=== PATIENT | female | born 1950 | race Caucasian/White ===

== ENCOUNTER 2017-01-10 11:47 | Emergency (ER) | payer MEDICARE, BC ==
[2017-01-10] MEDS ORDERED: Sodium Chloride 0.9% 10 ML Syringe FLUSH PRN (11:52)
[2017-01-10] MEDS ORDERED: Morphine 10 MG/ML Syringe IVPUSH ONE (12:10)
[2017-01-10] MEDS ORDERED: diphenhydrAMINE 50 MG/ML SDV IVPUSH ONE (12:11)
[2017-01-10] MEDS ORDERED: Ondansetron 4 MG/2 ML SDV IVPUSH ONE (12:12)
[2017-01-10 12:26] LABS: CHLORIDE,CL 106 mmol/L (98-107); SODIUM,NA 143 mmol/L (136-145)
[2017-01-10] MEDS ORDERED: LORazepam 2 MG/ML MDV IVPUSH ONE (12:29)
--- NOTE | 2017-01-10 12:38 | EDM.PDOC ---
ED HPI HEADACHE COMPLAINT - General Chief Complaint: Headache Stated Complaint: headache Time Seen by Provider: 01/10/17 11:50 Source of Information: Reports: Patient History Limitations: Reports: No limitations - History of Present Illness INITIAL COMMENTS - FREE TEXT/NARRATIVE: Patient comes in complaining of a more severe headache than normal. States that she has chronic pain issue that is generalized and includes headaches/ migraines. Does not take any narcotics for the pain nor NSAIDS. Has chronic renal insufficiency. Many pain meds give her hives. No history of anaphylactic reactions however per patient. Sees pain clinic in [place]. Says pain issues have ramped up over the past year. History of gastric bypass and chronic abdominal discomfort. No specific trigger for this headache. Headache is "all over". +Photophobia and nausea/dry heaves. Denies new neuro deficits. Had left sided headache yesterday that had some relief by manipulation of head/neck by P.T. No fevers or other acute changes suggesting other causes of headache per patient. Able to touch chin to chest. Has not taken anything for the headache. - Related Data Allergies/ADRs: Allergies Allergy/AdvReac Type Severity Reaction Status Date / Time benzalkonium chloride Allergy Itching Verified 01/10/17 12:06 [From Travatan] codeine Allergy Itching Verified 01/10/17 12:06 fentanyl [From Duragesic] Allergy Itching Verified 01/10/17 12:06 hydrocodone Allergy Itching Verified 01/10/17 12:06 meperidine [From Demerol] Allergy Bradycardia Verified 01/10/17 12:06 NSAIDS (Non-Steroidal Allergy Itching Verified 01/10/17 12:06 Anti-Inflamma tramadol Allergy Itching Verified 01/10/17 12:06 travoprost [From Travatan] Allergy Itching Verified 01/10/17 12:06 Home Meds: Home Meds Cholecalciferol (Vitamin D3) [Vitamin D3] 50,000 units PO Q21D 02/05/15 [History ] ClonazePAM [KlonoPIN] 1 mg PO BEDTIME 02/05/15 [History] FLUoxetine [PROzac] 20 mg PO BEDTIME 02/05/15 [History] Timolol Maleate [Timoptic 0.5% Ocudose] 1 drop EYEBOTH BEDTIME 02/05/15 [History ] traZODone 50 mg PO BEDTIME 02/05/15 [History] Biotin 5,000 mcg PO DAILY 01/10/17 [History] Calcitriol [Rocaltrol] 0.25 mcg PO DAILY 01/10/17 [History] Cyanocobalamin (Vitamin B-12) [Vitamin B-12] 1,500 mcg PO DAILY 01/10/17 [ History] DULoxetine [Cymbalta] 60 mg PO DAILY 01/10/17 [History] Ipratropium [Atrovent HFA] 1 puff INH Q4HR PRN 01/10/17 [History] L.acidoph,Paracasei, B.lactis [Probiotic] 1 each PO DAILY 01/10/17 [History] Past Medical History Respiratory History: Reports: COPD Genitourinary History: Reports: Chronic renal insuffiency Musculoskeletal History: Reports: Other (see below) (Chronic generalized pain) Neurological History: Reports: Headaches, chronic, Migraines Social & Family History - Tobacco Use Smoking Status *Q: Former Smoker Years of Tobacco use: 20 Used Tobacco, but Quit: Yes Month Tobacco Last Used: November 1978 Second Hand Smoke Exposure: Yes - Alcohol Use Days Per Week of Alcohol Use: 0 - Recreational Drug Use Recreational Drug Use: No ED ROS GENERAL - Review of Systems Review Of Systems: ROS reveals no pertinent complaints other than HPI. - Physical Exam Exam: See Below Exam Limited By: No limitations General Appearance: alert, WD/WN, moderate distress Eye Exam: bilateral eye: EOMI, normal inspection, PERRL Ears: normal external exam Nose: normal inspection Throat/Mouth: Normal inspection, Normal oropharynx, Normal voice, No airway compromise Head Exam: atraumatic, normocephalic Neck: normal inspection, supple, non-tender, full range of motion. No: lymphadenopathy (L), lymphadenopathy (R) Respiratory/Chest: no respiratory distress, lungs clear, normal breath sounds, no accessory muscle use Cardiovascular: regular rate, rhythm, no edema, no murmur GI/Abdominal: non tender, no distention (Female) Exam: Deferred Rectal (Female) Exam: Deferred Neuro Exam (Abbreviated): alert, oriented, normal cognition, normal reflexes, no motor/sensory deficits Back Exam: normal inspection Extremities: normal inspection, normal capillary refill Psychiatric: anxious Skin Exam: Warm, Dry, Intact, Normal color EKG INTERPRETATION EKG Date: 01/10/17 Time: 13:17 Rhythm: NSR Rate (beats/min): 67 [place]: normal P-wave: present QRS: normal ST-T: normal QT: normal Comparison: change from previous EKG (last EKG showed sinus bradycardia) Course - Vital Signs Last Recorded V/S: Last Vital Signs Temp 36.4 C 01/10/17 11:47 Pulse 69 01/10/17 15:07 Resp 20 01/10/17 15:07 BP 112/48 L 01/10/17 15:07 Pulse Ox 99 01/10/17 15:07 - Orders/Labs/Meds Orders: Active Orders 24 hr Category Date Time Status EKG Documentation Completion [RC] ASDIRECTED Care 01/10/17 13:15 Active Head wo Cont [CT] Stat Exams 01/10/17 11:50 Taken Saline Lock Insert [OM.PC] Stat Oth 01/10/17 11:52 Ordered EKG 12 Lead [EK] Routine Ther 01/10/17 13:15 Ordered Labs: Laboratory Tests 01/10/17 01/10/17 Range/Units 12:00 12:00 WBC 5.4 (4.0-10.2) K/uL RBC 4.66 (3.77-5.09) M/uL Hgb 13.6 D (11.7-15.5) g/dL Hct 43.2 (34.0-46.0) % MCV 92.7 D (84.0-98.0) fL MCH 29.2 (28.2-33.3) pg MCHC 31.5 L (31.7-36.0) g/dL RDW 13.1 (11.2-14.1) % Plt Count 170 (150-350) K/uL Neut % (Auto) 62.0 (45.0-80.0) % Lymph % (Auto) 22.4 (10.0-50.0) % Gaines % (Auto) 8.3 (2.0-14.0) % Eos % (Auto) 6.9 H (0.0-5.0) % Baso % (Auto) 0.4 (0.0-2.0) % Neut # 3.35 (1.40-7.00) K/uL Lymph # 1.21 (0.50-3.50) K/uL Gaines # 0.45 (0.00-1.00) K/uL Eos # 0.37 (0.00-0.50) K/uL Baso # 0.02 (0.00-0.20) K/uL Sodium 143 (136-145) mmol/L Potassium 4.7 (3.5-5.1) mmol/L Chloride 106 (98-107) mmol/L Carbon Dioxide 30.3 (21.0-32.0) mmol/L BUN 17 (7-18) mg/dL Creatinine 0.99 (0.51-1.17) mg/dL Est Cr Clr Drug Dosing TNP Estimated GFR (MDRD) 56 mL/min Glucose 104 (74-106) mg/dL Calcium 8.2 L (8.5-10.1) mg/dL Total Bilirubin 0.3 (0.2-1.0) mg/dL AST 27 (15-37) U/L ALT 24 (12-78) U/L Alkaline Phosphatase 58 (46-116) IU/L Total Protein 6.4 (6.4-8.2) g/dL Albumin 3.4 (3.4-5.0) g/dL Meds: Medications Discontinued Medications Generic Name Dose Route Start Last Admin Trade Name Freq PRN Reason Stop Dose Admin Diphenhydramine HCl 50 mg 01/10/17 12:11 01/10/17 12:24 Benadryl IVPUSH 01/10/17 12:12 50 mg ONETIME ONE Administration Sodium Chloride 1,000 mls @ 999 mls/hr 01/10/17 12:31 01/10/17 12:50 Normal Saline IV 01/10/17 13:31 999 mls/hr .BOLUS ONE Administration Sodium Chloride 2,000 mls @ 999 mls/hr 01/10/17 12:49 01/10/17 14:01 Normal Saline IV 01/10/17 14:31 999 mls/hr .BOLUS ONE Administration Ketorolac Tromethamine 30 mg 01/10/17 12:50 01/10/17 12:59 Toradol IVPUSH 01/10/17 12:51 30 mg ONETIME ONE Administration Lorazepam 1 mg 01/10/17 12:29 01/10/17 12:51 Ativan IVPUSH 01/10/17 12:30 1 mg ONETIME ONE Administration Methylprednisolone Sodium Succinate 125 mg 01/10/17 12:54 01/10/17 13:00 Solu-Medrol IVPUSH 01/10/17 12:55 125 mg ONETIME ONE Administration Morphine Sulfate 5 mg 01/10/17 12:10 01/10/17 12:23 Morphine IVPUSH 01/10/17 12:11 5 mg ONETIME ONE Administration Ondansetron HCl 4 mg 01/10/17 12:12 01/10/17 12:24 Zofran IVPUSH 01/10/17 12:13 4 mg ONETIME ONE Administration Promethazine HCl 25 mg 01/10/17 13:01 01/10/17 13:09 Phenergan IM 01/10/17 13:02 25 mg ONETIME ONE Administration Sodium Chloride 10 ml 01/10/17 11:52 Saline Flush FLUSH ASDIRECTED PRN Keep Vein Open - Radiology Interpretation Free Text/Narrative:: CT of head unremarkable for acute change per radiology. - Re-Assessments/Exams Free Text/Narrative Re-Assessment/Exam: 01/10/17 13:02 Patient premedicated with Benadryl and given single dose of Morphine. She became anxious immediately after the dose but then settled down quickly and had no obvious adverse reaction/itching. IV fluids started. Also received Toradol, Phenergan, Solu-medrol. Patient has had Toradol in past and tolerated it overall when questioned. SHe has on history that she itches at times with NSAIDS. CBC/Chem overall unremarkable. Plan at this time is to give fluids and observe. If pain can improve towards baseline level, will consider discharge home. 01/10/17 15:16 Patient feels much better. Had episode of chest discomfort when receiving medications. [place] to be anxiety-related but EKG performed and reviewed. Normal Sinus Rhythm. Chest discomfort resolved, patient less anxious and able to sleep. Pain is down to a "3" and she says this is baseline for her. Plan at this time is to discharge her home. She will continue regular medications and follow up as needed with primary provider and pain clinic. Departure - Departure Time of Disposition: 15:45 Disposition: Home, Self-Care 01 Condition: good Clinical Impression: Migraine, Dehydration Referrals: Adelaide Obrien MD [Primary Care Provider] - Forms: ED Department Discharge Additional Instructions: Home, rest. Highly recommend looking into elimination diet to look for triggers that may be influencing your chronic pain issues. Follow up with primary provider and pain clinic as needed. - My Orders Last 24 Hours: My Active Orders 01/10/17 11:50 Head wo Cont [CT] Stat 01/10/17 11:52 Saline Lock Insert [OM.PC] Stat 01/10/17 13:15 EKG Documentation Completion [RC] ASDIRECTED EKG 12 Lead [EK] Routine - Assessment/Plan Last 24 Hours: My Active Orders 01/10/17 11:50 Head wo Cont [CT] Stat 01/10/17 11:52 Saline Lock Insert [OM.PC] Stat 01/10/17 13:15 EKG Documentation Completion [RC] ASDIRECTED EKG 12 Lead [EK] Routine
[2017-01-10] MEDS ORDERED: Ketorolac 30 MG/ML SDV IVPUSH ONE (12:50)
[2017-01-10] MEDS: Sodium Chloride 0.9% 1,000 ML IV ONE (12:50)
[2017-01-10] MEDS: Sodium Chloride 0.9% 2,000 ML IV ONE ×2 (12:52→14:01)
[2017-01-10] MEDS ORDERED: methylPREDNISolone Sodium Succinate 125 MG/2 ML SDV IVPUSH ONE (12:54)
[2017-01-10] MEDS ORDERED: Promethazine 25 MG/ML SDV IM ONE (13:01)
[2017-01-10 16:09] VITALS: BP 112/48
[2017-01-11] MEDS: Sodium Chloride 0.9% 1,000 ML IV ONE (07:11)
== END 2017-01-10 15:54 | disposition home or self-care (01) ==
LOC: LL.ED 11:47
DX: G43.909 Migraine, unspecified, not intractable, without status migrainosus (principal); E86.0 Dehydration; J44.9 Chronic obstructive pulmonary disease, unspecified; N18.9 Chronic kidney disease, unspecified; Z88.8 Allergy status to other drugs, medicaments and biological substances; Z88.5 Allergy status to narcotic agent; Z88.6 Allergy status to analgesic agent; Z87.891 Personal history of nicotine dependence
CPT/HCPCS: 36415; 70450; 80053; 85025; 93005; 96361; 96372; 96374; 96375; 99285; J1200; J1885; J2060; J2270; J2405; J2550; J2930; J7030; 99283

== ENCOUNTER 2017-01-28 20:25 | Emergency (ER) | payer MEDICARE, BC ==
[2017-01-28] MEDS ORDERED: Ondansetron 4 MG/2 ML SDV IVPUSH ONE (20:47)
[2017-01-28] MEDS ORDERED: Sodium Chloride 0.9% 1,000 ML IV ONE (20:48)
[2017-01-28] MEDS ORDERED: methylPREDNISolone Sodium Succinate 125 MG/2 ML SDV IVPUSH ONE (21:06)
[2017-01-28] MEDS ORDERED: diphenhydrAMINE 50 MG/ML SDV IVPUSH ONE (21:06)
[2017-01-28] MEDS ORDERED: Promethazine 25 MG/ML SDV IM ONE (21:06)
[2017-01-28] MEDS ORDERED: Morphine 10 MG/ML Syringe IVPUSH ONE (21:07)
[2017-01-28 21:45] VITALS: BP 132/71
[2017-01-28] MEDS ORDERED: Ketorolac 30 MG/ML SDV IVPUSH ONE (22:12)
--- NOTE | 2017-01-28 22:13 | EDM.PDOC ---
ED HPI GENERAL MEDICAL PROBLEM - General Chief Complaint: General Stated Complaint: Vomiting, migraine RAMOS Time Seen by Provider: 01/28/17 20:55 Source of Information: Reports: Patient History Limitations: Reports: No limitations - History of Present Illness INITIAL COMMENTS - FREE TEXT/NARRATIVE: Patient has history of chronic pain/headaches with worsening migraine headaches recently. Started to develop headache this afternoon that steadily worsened. Initially right sided. Now both sides. Has nausea/vomiting. No other GI changes. Recent head CT when here in ER for same complaint. Pending MRI next week. She has not started recommended elimination diet. It is of note that she had spaghetti with red sauce for lunch just prior to headache started, with wheat/dairy/nightshades being among the frequent triggers for headaches. Denies vision changes but has photophobia. Patient denies any changes in headache character from prior headaches. No other neuro changes. No aura. No other complaints during ROS. Headache Pain Score (Numeric/FACES): 10 - Related Data Allergies Allergy/AdvReac Type Severity Reaction Status Date / Time benzalkonium chloride Allergy Itching Verified 01/28/17 21:44 [From Travatan] codeine Allergy Itching Verified 01/28/17 21:44 fentanyl [From Duragesic] Allergy Itching Verified 01/28/17 21:44 hydrocodone Allergy Itching Verified 01/28/17 21:44 meperidine [From Demerol] Allergy Bradycardia Verified 01/28/17 21:44 NSAIDS (Non-Steroidal Allergy Itching Verified 01/28/17 21:44 Anti-Inflamma tramadol Allergy Itching Verified 01/28/17 21:44 travoprost [From Travatan] Allergy Itching Verified 01/28/17 21:44 Home Meds: Home Meds Cholecalciferol (Vitamin D3) [Vitamin D3] 50,000 units PO Q21D 02/05/15 [History ] ClonazePAM [KlonoPIN] 1 mg PO BEDTIME 02/05/15 [History] FLUoxetine [PROzac] 20 mg PO BEDTIME 02/05/15 [History] Timolol Maleate [Timoptic 0.5% Ocudose] 1 drop EYEBOTH BEDTIME 02/05/15 [History ] traZODone 50 mg PO BEDTIME 02/05/15 [History] Biotin 5,000 mcg PO DAILY 01/10/17 [History] Calcitriol [Rocaltrol] 0.25 mcg PO DAILY 01/10/17 [History] Cyanocobalamin (Vitamin B-12) [Vitamin B-12] 1,500 mcg PO DAILY 01/10/17 [ History] DULoxetine [Cymbalta] 60 mg PO DAILY 01/10/17 [History] Ipratropium [Atrovent HFA] 1 puff INH Q4HR PRN 01/10/17 [History] L.acidoph,Paracasei, B.lactis [Probiotic] 1 each PO DAILY 01/10/17 [History] Baclofen 5 mg PO BID PRN 01/28/17 [History] Ondansetron [Zofran ODT] 4 mg PO Q6H PRN 01/28/17 [History] Past Medical History Respiratory History: Reports: COPD Genitourinary History: Reports: Chronic renal insuffiency Musculoskeletal History: Reports: Other (see below) (Chronic generalized pain) Neurological History: Reports: Headaches, chronic, Migraines Social & Family History - Tobacco Use Smoking Status *Q: Former Smoker Years of Tobacco use: 20 Used Tobacco, but Quit: Yes Month Tobacco Last Used: November 1978 Second Hand Smoke Exposure: Yes - Caffeine Use Caffeine Use: Reports: Coffee - Alcohol Use Days Per Week of Alcohol Use: 0 - Recreational Drug Use Recreational Drug Use: No ED ROS GENERAL - Review of Systems Review Of Systems: ROS reveals no pertinent complaints other than HPI. ED EXAM, GENERAL - Physical Exam Exam: See Below Exam Limited By: No limitations General Appearance: alert, WD/WN, moderate distress (crying) Eye Exam: bilateral eye: EOMI, PERRL Ears: normal external exam, normal canal Nose: normal inspection Throat/Mouth: Normal inspection, Normal voice, No airway compromise Head: atraumatic, normocephalic Neck: normal inspection, supple, non-tender, full range of motion. No: lymphadenopathy (L), lymphadenopathy (R) Respiratory/Chest: no respiratory distress, lungs clear, normal breath sounds, no accessory muscle use, chest non-tender Cardiovascular: normal peripheral pulses, regular rate, rhythm, no edema, no murmur Peripheral Pulses: 2+: radial (L), radial (R) GI/Abdominal: normal bowel sounds, soft, non tender, no distention Back Exam: No: CVA tenderness (L), CVA tenderness (R) Extremities: normal inspection, normal range of motion, non-tender, no pedal edema, normal capillary refill Neurological: alert, oriented, normal cognition, no motor/sensory deficits Psychiatric: anxious Skin Exam: Warm, Dry, Intact, Normal color Course - Vital Signs Last Recorded V/S: Last Vital Signs Temp 37.4 C 01/28/17 20:26 Pulse 68 01/28/17 21:30 Resp 16 01/28/17 21:30 BP 132/71 01/28/17 21:30 Pulse Ox 94 L 01/28/17 21:30 - Orders/Labs/Meds Orders: Active Orders 24 hr Category Date Time Status Peripheral IV Care [RC] . DIRECTED Care 01/28/17 20:48 Active Peripheral IV Insertion Adult [OM.PC] Routine Oth 01/28/17 20:47 Ordered Meds: Medications Discontinued Medications Generic Name Dose Route Start Last Admin Trade Name Emersonq PRN Reason Stop Dose Admin Diphenhydramine HCl 50 mg 01/28/17 21:06 01/28/17 21:11 Benadryl IVPUSH 01/28/17 21:07 50 mg ONETIME ONE Administration Sodium Chloride 1,000 mls @ 999 mls/hr 01/28/17 20:48 01/28/17 20:58 Normal Saline IV 01/28/17 21:48 999 mls/hr .BOLUS ONE Administration Ketorolac Tromethamine 30 mg 01/28/17 22:12 01/28/17 22:22 Toradol IVPUSH 01/28/17 22:13 30 mg ONETIME ONE Administration Methylprednisolone Sodium Succinate 125 mg 01/28/17 21:06 01/28/17 21:12 Solu-Medrol IVPUSH 01/28/17 21:07 125 mg ONETIME ONE Administration Morphine Sulfate 5 mg 01/28/17 21:07 01/28/17 21:24 Morphine IVPUSH 01/28/17 21:08 5 mg ONETIME ONE Administration Ondansetron HCl 4 mg 01/28/17 20:47 01/28/17 20:50 Zofran IVPUSH 01/28/17 20:48 4 mg ONETIME ONE Administration Promethazine HCl 25 mg 01/28/17 21:06 01/28/17 21:12 Phenergan IM 01/28/17 21:07 25 mg ONETIME ONE Administration - Re-Assessments/Exams Free Text/Narrative Re-Assessment/Exam: 01/28/17 22:53 Regimen of medications repeated that were successful for last migraine. IV NS bolus given. Meds included Zofran initially. Later Benadryl, MS, Phenergan, Solu-medrol given. Patient improved. Toradol given prior to discharge. Patient not completely pain-free (has daily chronic headaches) but much improved. Follow up for MRI next week. See your primary provider as scheduled. Follow up otherwise as needed. Departure - Departure Time of Disposition: 22:37 Disposition: Home, Self-Care 01 Condition: good Clinical Impression: Migraine Referrals: Carmel Baldwin NP [Primary Care Provider] - Forms: ED Department Discharge Additional Instructions: Continue current care plan. Recommend doing complete elimination diet as discussed given severity of your symptoms. Pain clinic/migraine clinic may have its own protocol. Book resources include The Whole 30 by Lida and The Elimination Diet by Tyler. These can be purchased on [employer]. Home, rest, stay hydrated. Avoid wheat/gluten and dairy for the next 4 weeks. - My Orders Last 24 Hours: My Active Orders 01/28/17 20:47 Peripheral IV Insertion Adult [OM.PC] Routine 01/28/17 20:48 Peripheral IV Care [RC] . DIRECTED - Assessment/Plan Last 24 Hours: My Active Orders 01/28/17 20:47 Peripheral IV Insertion Adult [OM.PC] Routine 01/28/17 20:48 Peripheral IV Care [RC] . DIRECTED
== END 2017-01-28 23:20 | disposition home or self-care (01) ==
LOC: LL.ED 20:25
DX: G43.909 Migraine, unspecified, not intractable, without status migrainosus (principal); J44.9 Chronic obstructive pulmonary disease, unspecified; Z79.899 Other long term (current) drug therapy; Z88.5 Allergy status to narcotic agent; Z88.8 Allergy status to other drugs, medicaments and biological substances; Z87.891 Personal history of nicotine dependence
CPT/HCPCS: 96361; 96372; 96374; 96375; 99283; J1200; J1885; J2270; J2405; J2550; J2930; J7030

== ENCOUNTER 2017-12-29 11:39 | Inpatient (IN) | payer MEDICARE, BC ==
[2017-12-29] MEDS ORDERED: Temazepam 15 MG Cap PO PRN (12:00)
[2017-12-29] MEDS ORDERED: Levalbuterol HCl 0.63 MG/3 ML Neb NEB PRN (12:55)
--- NOTE | 2017-12-29 13:02 | PCM.HP ---
H&P History of Present Illness - General Date of Service: 12/29/17 Admit Problem/Dx: Admission Diagnosis/Problem Admission Diagnosis/Problem Asthmatic bronchitis with acute exacerbation Source of Information: Patient, EMS Notes Reviewed History Limitations: Reports: No Limitations - History of Present Illness Initial Comments - Free Text/Narative: Patient has been treated as an outpatient with oral steroids, IM steriod injections, nebulizer treatments, and inhalers with no improvement. Patient continues to cough constantly, using over the counter cold medications with little relief. Patient does have a history of asthmatic bronchitis in the past. Difficult to sleep at night due to the cough. No fever, cough is tight and nonproductive, wheezing at times Onset of Symptoms: Reports: Gradual Improves with: Reports: Medication Associated Symptoms: Reports: Cough, Malaise - Related Data Allergies/Adverse Reactions: Allergies Allergy/AdvReac Type Severity Reaction Status Date / Time benzalkonium chloride Allergy Itching Verified 01/28/17 21:44 [From Travatan] codeine Allergy Itching Verified 01/28/17 21:44 fentanyl [From Duragesic] Allergy Itching Verified 01/28/17 21:44 hydrocodone Allergy Itching Verified 01/28/17 21:44 meperidine [From Demerol] Allergy Bradycardia Verified 01/28/17 21:44 NSAIDS (Non-Steroidal Allergy Itching Verified 01/28/17 21:44 Anti-Inflamma tramadol Allergy Itching Verified 01/28/17 21:44 travoprost [From Travatan] Allergy Itching Verified 01/28/17 21:44 Home Medications: Home Meds Cholecalciferol (Vitamin D3) [Vitamin D3] 50,000 units PO Q21D 02/05/15 [History ] ClonazePAM [KlonoPIN] 1 mg PO BEDTIME 02/05/15 [History] FLUoxetine [PROzac] 20 mg PO BEDTIME 02/05/15 [History] Timolol Maleate [Timoptic 0.5% Ocudose] 1 drop EYEBOTH BEDTIME 02/05/15 [History ] traZODone 50 mg PO BEDTIME 02/05/15 [History] Biotin 5,000 mcg PO DAILY 01/10/17 [History] Calcitriol [Rocaltrol] 0.25 mcg PO DAILY 01/10/17 [History] Cyanocobalamin (Vitamin B-12) [Vitamin B-12] 1,500 mcg PO DAILY 01/10/17 [ History] DULoxetine [Cymbalta] 60 mg PO DAILY 01/10/17 [History] Ipratropium [Atrovent HFA] 1 puff INH Q4HR PRN 01/10/17 [History] L.acidoph,Paracasei, B.lactis [Probiotic] 1 each PO DAILY 01/10/17 [History] Baclofen 5 mg PO BID PRN 01/28/17 [History] Ondansetron [Zofran ODT] 4 mg PO Q6H PRN 01/28/17 [History] Past Medical History Respiratory History: Reports: COPD Other Gastrointestinal History: CKD Genitourinary History: Reports: Chronic Renal Insuffiency Musculoskeletal History: Reports: Other (See Below) Neurological History: Reports: Headaches, Chronic, Migraines Other Hematologic History: history of thrombocytopenia - Past Surgical History Other HEENT Surgeries/Procedures: parotid gland removal Other Cardiovascular Surgeries/Procedures: history of bradycardia with narcotic usages Social & Family History - Tobacco Use Smoking Status *Q: Former Smoker Years of Tobacco use: 20 Used Tobacco, but Quit: Yes Month Tobacco Last Used: November 1978 Second Hand Smoke Exposure: Yes - Caffeine Use Caffeine Use: Reports: Coffee - Alcohol Use Days Per Week of Alcohol Use: 0 - Recreational Drug Use Recreational Drug Use: No H&P Review of Systems - Review of Systems: Review Of Systems: See Below General: Reports: Weakness, Fatigue HEENT: Reports: No Symptoms Pulmonary: Reports: Wheezing, Pleuritic Chest Pain, Cough Cardiovascular: Reports: No Symptoms Gastrointestinal: Reports: No Symptoms Genitourinary: Reports: No Symptoms Musculoskeletal: Reports: No Symptoms Skin: Reports: No Symptoms Psychiatric: Reports: No Symptoms Neurological: Reports: No Symptoms Hematologic/Lymphatic: Reports: No Symptoms Immunologic: Reports: No Symptoms Exam - Exam Exam: See Below - Exam Quality Assessment: DVT Prophylaxis General: Alert, Oriented, Cooperative HEENT: Conjunctiva Clear, EACs Clear, EOMI Neck: Supple, Trachea Midline Lungs: Normal Respiratory Effort, Decreased Breath Sounds, Wheezing Cardiovascular: Regular Rate, Regular Rhythm GI/Abdominal Exam: Normal Bowel Sounds, Soft, Non-Tender, No Organomegaly, No Distention Back Exam: Normal Inspection, Full Range of Motion Extremities: Normal Inspection, Normal Range of Motion, Non-Tender, No Pedal Edema, Normal Capillary Refill Peripheral Pulses: 1+: Dorsalis Pedis (L), Dorsalis Pedis (R) Skin: Warm, Dry, Intact Neurological: Cranial Nerves Intact, Reflexes Equal Bilateral Neuro Extensive - Mental Status: Alert, Oriented x3, Normal Mood/Affect, Normal Cognition, Memory Intact Neuro Extensive - Motor, Sensory, Reflexes: CN II-XII Intact, Normal Gait, Normal Reflexes Psychiatric: Alert, Normal Affect, Normal Mood *Q Meaningful Use (ADM) - VTE *Q VTE Criteria *Q: - Stroke *Q Stroke Criteria *Q: - AMI *Q AMI Criteria *Q: - Problem List (1) Asthmatic bronchitis with acute exacerbation SNOMED Code(s): 592597343 ICD Code: J45.901 - UNSPECIFIED ASTHMA WITH (ACUTE) EXACERBATION Status: Acute Current Visit: Yes Qualifiers: Asthma severity: unspecified severity (2) COPD (chronic obstructive pulmonary disease) with acute bronchitis SNOMED Code(s): 987539508788827 ICD Code: J44.0 - CHRONIC OBSTRUCTIVE PULMON DISEASE W ACUTE LOWER RESP INFCT ; J20.9 - ACUTE BRONCHITIS, UNSPECIFIED Status: Acute Current Visit: Yes Problem List Initiated/Reviewed/Updated: Yes Orders Last 24hrs: Active Orders 24 hr Category Date Time Status Patient Status [ADT] Routine ADT 12/29/17 12:00 Ordered Ambulate [RC] ASDIRECTED Care 12/29/17 12:00 Ordered Ambulate [RC] PER UNIT ROUTINE Care 12/29/17 12:02 Ordered Antiembolic Devices [RC] PER UNIT ROUTINE Care 12/29/17 12:03 Ordered Cardiac Monitoring [RC] CONTINUOUS Care 12/29/17 12:02 Ordered May Shower [RC] ASDIRECTED Care 12/29/17 12:00 Ordered Oxygen Therapy [RC] PRN Care 12/29/17 12:00 Ordered Peripheral IV Care [RC] . DIRECTED Care 12/29/17 12:03 Ordered RT Aerosol Therapy [RC] ASDIRECTED Care 12/29/17 12:54 Ordered RT Aerosol Therapy [RC] ASDIRECTED Care 12/29/17 12:55 Ordered VTE/DVT Education [RC] PER UNIT ROUTINE Care 12/29/17 12:00 Ordered Vital Signs [RC] Q4H Care 12/29/17 12:00 Ordered Regular Diet [DIET] Diet 12/29/17 Lunch Ordered Chest 2V [CR] Routine Exams 02/27/18 12:00 Ordered C-REACTIVE PROTEIN [CHEM] DAILY Lab 12/30/17 05:11 Ordered C-REACTIVE PROTEIN [CHEM] DAILY Lab 12/31/17 05:11 Ordered C-REACTIVE PROTEIN [CHEM] DAILY Lab 01/01/18 05:11 Ordered C-REACTIVE PROTEIN [CHEM] DAILY Lab 01/02/18 05:11 Ordered CBC WITH AUTO DIFF [HEME] DAILY Lab 12/30/17 05:11 Ordered CBC WITH AUTO DIFF [HEME] DAILY Lab 12/31/17 05:11 Ordered CBC WITH AUTO DIFF [HEME] DAILY Lab 01/01/18 05:11 Ordered CBC WITH AUTO DIFF [HEME] DAILY Lab 01/02/18 05:11 Ordered COMPREHENSIVE METABOLIC PN,CMP [CHEM] DAILY Lab 12/30/17 05:11 Ordered COMPREHENSIVE METABOLIC PN,CMP [CHEM] DAILY Lab 12/31/17 05:11 Ordered COMPREHENSIVE METABOLIC PN,CMP [CHEM] DAILY Lab 01/01/18 05:11 Ordered COMPREHENSIVE METABOLIC PN,CMP [CHEM] DAILY Lab 01/02/18 05:11 Ordered Acetaminophen [Tylenol] Med 12/29/17 12:00 Ordered 650 mg PO Q4H PRN Azithromycin [Zithromax] Med 01/01/18 12:00 Ordered 500 mg PO DAILY Azithromycin [Zithromax] 500 mg Med 12/29/17 12:15 Ordered Sodium Chloride 0.9% [Normal Saline] 250 ml IV Q24H Benzonatate [Tessalon Perles] Med 12/29/17 12:52 Ordered 200 mg PO TID PRN Lactated Ringers [Ringers, Lactated] 1,000 ml Med 12/29/17 12:00 Ordered IV ASDIRECTED Levalbuterol HCl [Xopenex] Med 12/29/17 14:00 Ordered 0.63 mg NEB Q6HRRT Levalbuterol HCl [Xopenex] Med 12/29/17 12:55 Ordered 0.63 mg NEB Q6HRRT PRN Sodium Chloride 0.9% [Saline Flush] Med 12/29/17 12:00 Ordered 10 ml FLUSH ASDIRECTED PRN Temazepam [Restoril] Med 12/29/17 12:00 Ordered 15 mg PO BEDTIME PRN methylPREDNISolone Sod Succ [Solu-MEDROL] Med 12/29/17 12:15 Ordered 40 mg IVPUSH Q12H Antiembolic Hose [OM.PC] Per Unit Routine Oth 12/29/17 12:02 Ordered Peripheral IV Insertion Adult [OM.PC] Routine Oth 12/29/17 12:00 Ordered Resuscitation Status Routine Resus Stat 12/29/17 12:00 Ordered Medication Orders Acetaminophen (Tylenol) 650 mg PO Q4H PRN PRN Reason: Pain (Mild 1-3)/fever Azithromycin (Zithromax) 500 mg PO DAILY JEAN CARLOS Benzonatate (Tessalon Perles) 200 mg PO TID PRN PRN Reason: Cough Azithromycin 500 mg/ Sodium (Chloride) 250 mls @ 250 mls/hr IV Q24H JEAN CARLOS Stop: 01/01/18 12:01 Lactated Ringer's (Ringers, Lactated) 1,000 mls @ 50 mls/hr IV ASDIRECTED JEAN CARLOS Levalbuterol HCl (Xopenex) 0.63 mg NEB Q6HRRT JEAN CARLOS Levalbuterol HCl (Xopenex) 0.63 mg NEB Q6HRRT PRN PRN Reason: Cough Methylprednisolone Sodium Succinate (Solu-Medrol) 40 mg IVPUSH Q12H JEAN CARLOS Sodium Chloride (Saline Flush) 10 ml FLUSH ASDIRECTED PRN PRN Reason: Keep Vein Open Temazepam (Restoril) 15 mg PO BEDTIME PRN PRN Reason: Sleep Assessment/Plan Comment:: 12/29/2017 Patient will be admitted to inpatient for treatment of Asthmatic Bronchitis with outpatient failure. Start IV Solumedrol and Zithromax. Recheck labs in the morning. Discussed with Dr Jiang. Patient needs inpatient treatment as all other treatment options have been tried and failed. Patient continues to cough and wheeze. Carmel Baldwin,[employer]
[2017-12-29] MEDS: Lactated Ringers 1,000 ML IV SCH (13:29)
[2017-12-29] MEDS: Acetaminophen 325 MG Tab PO PRN ×2 (13:30→20:24)
[2017-12-29] MEDS: methylPREDNISolone Sodium Succinate 40 MG/1 ML SDV IVPUSH SCH (13:30)
[2017-12-29] MEDS: Azithromycin 500 MG in Sodium Chloride 0.9% 250 ML IV SCH (13:30)
[2017-12-29] MEDS: Sodium Chloride 0.9% 10 ML Syringe FLUSH PRN (13:31)
[2017-12-29] MEDS ORDERED: Dextromethorphan/guaiFENesin 600-30 MG Tab.ER PO PRN (13:38)
[2017-12-29] MEDS: Levalbuterol HCl 0.63 MG/3 ML Neb NEB SCH ×2 (14:47→20:37)
[2017-12-29] MEDS: Benzonatate 100 MG Cap PO PRN ×2 (14:47→21:45)
[2017-12-29] MEDS: DULoxetine 30 MG Cap PO SCH (20:18)
[2017-12-29] MEDS: Lactobacillus Rhamnosus GG (Probiotic) Cap PO SCH (20:18)
[2017-12-29] MEDS: Calcitriol 0.25 MCG Cap PO SCH (20:19)
[2017-12-29] MEDS: Timolol Maleate 0.5% Ophth Soln 5 ML Bottle EYEBOTH SCH (20:19)
[2017-12-29] MEDS: Cyanocobalamin (Vitamin B12) 1,000 MCG Tab PO SCH (20:20)
[2017-12-29] MEDS: Topiramate 25 MG Tab PO SCH (20:31)
[2017-12-29] MEDS: Sodium Chloride 0.9% 10 ML Syringe FLUSH SCH (20:38)
[2017-12-29] MEDS: traZODone 50 MG Tab PO PRN (21:42)
[2017-12-29] MEDS: ClonazePAM 0.5 MG Tab PO PRN (21:42)
[2017-12-30] MEDS: Levalbuterol HCl 0.63 MG/3 ML Neb NEB SCH ×4 (01:49→20:29)
[2017-12-30] MEDS: methylPREDNISolone Sodium Succinate 40 MG/1 ML SDV IVPUSH SCH ×2 (01:49→12:19)
[2017-12-30 07:34] LABS: CHLORIDE,CL 105 mmol/L (98-107); SODIUM,NA 138 mmol/L (136-145)
[2017-12-30] MEDS: Sodium Chloride 0.9% 10 ML Syringe FLUSH SCH ×2 (08:14→20:30)
[2017-12-30] MEDS: Acetaminophen 325 MG Tab PO PRN ×3 (08:16→20:32)
[2017-12-30] MEDS: Benzonatate 100 MG Cap PO PRN ×3 (08:19→20:31)
[2017-12-30] MEDS: Lactated Ringers 1,000 ML IV SCH (10:41)
[2017-12-30] MEDS ORDERED: Arformoterol 15 MCG/2 ML Neb Soln NEB ONE (12:00)
[2017-12-30] MEDS: Azithromycin 500 MG in Sodium Chloride 0.9% 250 ML IV SCH (12:16)
[2017-12-30] MEDS: Sodium Chloride 0.9% 10 ML Syringe FLUSH PRN (12:31)
--- NOTE | 2017-12-30 13:18 | PCM.PN ---
- General Info Date of Service: 12/30/17 Admission Dx/Problem (Free Text): Admission Diagnosis/Problem Admission Diagnosis/Problem Asthmatic bronchitis with acute exacerbation Functional Status: Reports: Tolerating Diet, Ambulating - Review of Systems General: Reports: Weakness HEENT: Reports: No Symptoms Pulmonary: Reports: Shortness of Breath, Cough (shortness of breath with activity) Cardiovascular: Reports: Dyspnea on Exertion Gastrointestinal: Reports: No Symptoms Genitourinary: Reports: No Symptoms Musculoskeletal: Reports: No Symptoms Skin: Reports: No Symptoms Neurological: Reports: No Symptoms Psychiatric: Reports: No Symptoms - Patient Data Vitals - Most Recent: Last Vital Signs Temp 98.6 F 12/30/17 12:00 Pulse 86 12/30/17 12:00 Resp 20 12/30/17 12:00 BP 111/62 12/30/17 12:00 Pulse Ox 93 L 12/30/17 12:00 Weight - Most Recent: 187 lb 15.987 oz I&O - Last 24 Hours: Intake & Output 12/29/17 12/30/17 12/30/17 22:59 06:59 14:59 Intake Total 360 240 Output Total 300 Balance 60 240 Lab Results Last 24 Hours: Laboratory Results - last 24 hr 12/30/17 12/30/17 Range/Units 06:48 06:48 WBC 10.9 H (4.0-10.2) K/uL RBC 4.51 (3.77-5.09) M/uL Hgb 12.3 (11.7-15.5) g/dL Hct 38.0 (34.0-46.0) % MCV 84.3 D (84.0-98.0) fL MCH 27.3 L (28.2-33.3) pg MCHC 32.4 (31.7-36.0) g/dL RDW 13.2 (11.2-14.1) % Plt Count 220 (150-350) K/uL Neut % (Auto) 88.8 H (45.0-80.0) % Lymph % (Auto) 7.2 L (10.0-50.0) % [place] % (Auto) 3.9 (2.0-14.0) % Eos % (Auto) 0.0 (0.0-5.0) % Baso % (Auto) 0.1 (0.0-2.0) % Neut # (Auto) 9.68 H (1.40-7.00) K/uL Lymph # (Auto) 0.78 (0.50-3.50) K/uL [place] # (Auto) 0.42 (0.00-1.00) K/uL Eos # (Auto) 0.00 (0.00-0.50) K/uL Baso # (Auto) 0.01 (0.00-0.20) K/uL Sodium 138 (136-145) mmol/L Potassium 4.4 (3.5-5.1) mmol/L Chloride 105 (98-107) mmol/L Carbon Dioxide 24.1 (21.0-32.0) mmol/L BUN 23 H (7-18) mg/dL Creatinine 0.93 (0.51-1.17) mg/dL Est Cr Clr Drug Dosing 60.26 mL/min Estimated GFR (MDRD) > 60 mL/min Glucose 164 H (74-106) mg/dL Calcium 8.7 (8.5-10.1) mg/dL Total Bilirubin 0.3 (0.2-1.0) mg/dL AST 15 (15-37) U/L ALT 17 (12-78) U/L Alkaline Phosphatase 73 (46-116) IU/L C-Reactive Protein < 0.1 (<=0.9) mg/dL Total Protein 6.4 (6.4-8.2) g/dL Albumin 3.1 L (3.4-5.0) g/dL Med Orders - Current: Current Medications Acetaminophen (Tylenol) 650 mg PO Q4H PRN PRN Reason: Pain (Mild 1-3)/fever Last Admin: 12/30/17 08:16 Dose: 650 mg Azithromycin (Zithromax) 500 mg PO DAILY JEAN CARLOS Benzonatate (Tessalon Perles) 200 mg PO TID PRN PRN Reason: Cough Last Admin: 12/30/17 08:19 Dose: 200 mg Calcitriol (Rocaltrol) 0.25 mcg PO BEDTIME JEAN CARLOS Last Admin: 12/29/17 20:19 Dose: 0.25 mcg Clonazepam (Klonopin) 1 mg PO BEDTIME PRN PRN Reason: Insomnia Last Admin: 02/27/18 21:42 Dose: 1 mg Cyanocobalamin (Vitamin B12) 1,500 mcg PO BEDTIME [facility] Last Admin: 12/29/17 20:20 Dose: 1,500 mcg Duloxetine HCl (Cymbalta) 60 mg PO BEDTIME [facility] Last Admin: 12/29/17 20:18 Dose: 60 mg Guaifenesin/Dextromethorphan (Mucinex Dm Er 600-30 Mg) 1 tab PO BID PRN PRN Reason: Cough Azithromycin 500 mg/ Sodium (Chloride) 250 mls @ 250 mls/hr IV Q24H [facility] Stop: 12/31/17 12:59 Last Admin: 12/30/17 12:16 Dose: 250 mls/hr Lactated Ringer's (Ringers, Lactated) 1,000 mls @ 50 mls/hr IV ASDIRECTED [facility] Last Admin: 12/30/17 10:41 Dose: 50 mls/hr Lactobacillus Rhamnosus (Culturelle) 1 cap PO BEDTIME [facility] Last Admin: 12/29/17 20:18 Dose: 1 cap Levalbuterol HCl (Xopenex) 0.63 mg NEB Q6HRRT [facility] Last Admin: 12/30/17 08:14 Dose: 0.63 mg Levalbuterol HCl (Xopenex) 0.63 mg NEB Q6HRRT PRN PRN Reason: Cough Methylprednisolone Sodium Succinate (Solu-Medrol) 40 mg IVPUSH Q12H [facility] Last Admin: 12/30/17 12:19 Dose: 40 mg Sodium Chloride (Saline Flush) 10 ml FLUSH ASDIRECTED PRN PRN Reason: Keep Vein Open Last Admin: 12/30/17 12:31 Dose: 10 ml Sodium Chloride (Saline Flush) 10 ml FLUSH Q12HR [facility] Last Admin: 12/30/17 08:14 Dose: Not Given Timolol Maleate (Timoptic 0.5% Ophth Soln) 1 ml EYEBOTH BEDTIME [facility] Last Admin: 12/29/17 20:19 Dose: 1 drop Topiramate (Topamax) 25 mg PO BEDTIME [facility] Last Admin: 12/29/17 20:31 Dose: 25 mg Trazodone HCl (Trazodone) 50 mg PO BEDTIME PRN PRN Reason: Insomnia Last Admin: 12/29/17 21:42 Dose: 50 mg Discontinued Medications Arformoterol Tartrate (Brovana) 15 mcg NEB ONETIME ONE Stop: 12/30/17 12:01 Last Admin: 12/30/17 12:27 Dose: 15 mcg - Exam General: Alert, Oriented, Cooperative, No Acute Distress HEENT: Pupils Equal, Pupils Reactive, EOMI, Mucous Membr. Moist/[place] Neck: Supple Lungs: Clear to Auscultation, Normal Respiratory Effort Cardiovascular: Regular Rate, Regular Rhythm, No Murmurs GI/Abdominal Exam: Normal Bowel Sounds, Soft, Non-Tender, No Organomegaly, No Distention, No Abnormal Bruit Back Exam: Normal Inspection Extremities: Normal Inspection, Normal Range of Motion, Non-Tender, No Pedal Edema, Normal Capillary Refill Peripheral Pulses: 1+: Dorsalis Pedis (L), Dorsalis Pedis (R) Skin: Warm, Dry, Intact Neurological: No New Focal Deficit Psy/Mental Status: Alert, Normal Affect, Normal Mood - Problem List & Annotations (1) Asthmatic bronchitis with acute exacerbation SNOMED Code(s): 715530059 Code(s): J45.901 - UNSPECIFIED ASTHMA WITH (ACUTE) EXACERBATION Status: Acute Current Visit: Yes Qualifiers: Asthma severity: unspecified severity (2) COPD (chronic obstructive pulmonary disease) with acute bronchitis SNOMED Code(s): 707982970247418 Code(s): J44.0 - CHRONIC OBSTRUCTIVE PULMON DISEASE W ACUTE LOWER RESP INFCT ; J20.9 - ACUTE BRONCHITIS, UNSPECIFIED Status: Acute Current Visit: Yes - Problem List Review Problem List Initiated/Reviewed/Updated: Yes - My Orders Last 24 Hours: My Active Orders 12/29/17 12:52 Benzonatate [Tessalon Perles] 200 mg PO TID PRN 12/29/17 12:54 RT Aerosol Therapy [RC] ASDIRECTED 12/29/17 12:55 RT Aerosol Therapy [RC] 02,08,14,20 Levalbuterol HCl [Xopenex] 0.63 mg NEB Q6HRRT PRN 12/29/17 13:38 Dextromethorphan/guaiFENesin [Mucinex DM ER 600-30 MG] 1 tab PO BID PRN 12/29/17 14:00 Levalbuterol HCl [Xopenex] 0.63 mg NEB Q6HRRT 12/29/17 20:00 Vital Signs [RC] QID Calcitriol [Rocaltrol] 0.25 mcg PO BEDTIME Cyanocobalamin (Vitamin B12) [Vitamin B12] 1,500 mcg PO BEDTIME DULoxetine [Cymbalta] 60 mg PO BEDTIME Lactobacillus Rhamnosus GG [Culturelle] 1 cap PO BEDTIME Timolol Maleate [Timoptic 0.5% Ophth Soln] 1 ml EYEBOTH BEDTIME Topiramate [Topamax] 25 mg PO BEDTIME 12/30/17 13:04 DD [D-DIMER QUANTITATIVE] [COAG] Routine 12/31/17 05:11 C-REACTIVE PROTEIN [CHEM] DAILY CBC WITH AUTO DIFF [HEME] DAILY COMPREHENSIVE METABOLIC PN,CMP [CHEM] DAILY 01/01/18 05:11 C-REACTIVE PROTEIN [CHEM] DAILY CBC WITH AUTO DIFF [HEME] DAILY COMPREHENSIVE METABOLIC PN,CMP [CHEM] DAILY 01/01/18 08:00 Azithromycin [Zithromax] 500 mg PO DAILY 01/02/18 05:11 C-REACTIVE PROTEIN [CHEM] DAILY CBC WITH AUTO DIFF [HEME] DAILY COMPREHENSIVE METABOLIC PN,CMP [CHEM] DAILY - Plan Plan:: 12/29/2017 Patient will be admitted to inpatient for treatment of Asthmatic Bronchitis with outpatient failure. Start IV Solumedrol and Zithromax. Recheck labs in the morning. Discussed with Dr Jiang. Patient needs inpatient treatment as all other treatment options have been tried and failed. Patient continues to cough and wheeze. Carmel Baldwin CNP 12/30/2017 Patient feels some better, still with shortness of breath especially with activity. Has a pressure in her chest at times, notices when ambulating or in bed. Will check D Dimer today. Given Brovanna neb times one today, little relief. Patient noticed relief with IV solumedrol. Less coughing. Recheck labs in the morning. Consult with Dr Jiang. Continue with IV fluids, patient states not drinking as much fluids as she should be. Chest Xray and labs reviewed with the patient. Carmel Baldwin CNP
[2017-12-30] MEDS ORDERED: Levalbuterol HCl 0.63 MG/3 ML Neb NEB PRN (17:42)
[2017-12-30] MEDS: Arformoterol 15 MCG/2 ML Neb Soln NEB SCH (20:29)
[2017-12-30] MEDS: Topiramate 25 MG Tab PO SCH (20:30)
[2017-12-30] MEDS: Lactobacillus Rhamnosus GG (Probiotic) Cap PO SCH (20:30)
[2017-12-30] MEDS: Calcitriol 0.25 MCG Cap PO SCH (20:30)
[2017-12-30] MEDS: DULoxetine 30 MG Cap PO SCH (20:30)
[2017-12-30] MEDS: Cyanocobalamin (Vitamin B12) 1,000 MCG Tab PO SCH (20:30)
[2017-12-30] MEDS: Timolol Maleate 0.5% Ophth Soln 5 ML Bottle EYEBOTH SCH (20:31)
[2017-12-30] MEDS: traZODone 50 MG Tab PO PRN (21:16)
[2017-12-30] MEDS: ClonazePAM 0.5 MG Tab PO PRN (21:16)
[2017-12-31] MEDS: methylPREDNISolone Sodium Succinate 40 MG/1 ML SDV IVPUSH SCH ×3 (00:55→21:03)
[2017-12-31] MEDS: Sodium Chloride 0.9% 10 ML Syringe FLUSH PRN ×2 (00:55→12:31)
[2017-12-31] MEDS: Levalbuterol HCl 0.63 MG/3 ML Neb NEB SCH ×4 (01:00→21:02)
[2017-12-31 06:51] LABS: O2 DELIVERY DEVICE ROOM AIR
[2017-12-31 07:12] LABS: CHLORIDE,CL 105 mmol/L (98-107); SODIUM,NA 140 mmol/L (136-145)
[2017-12-31 07:14] LABS: BASE EXCESS VENOUS -3 mmol/L ((-2)-3); BICARBONATE,VENOUS 23 mmol/L (23-28); O2 SATURATION VENOUS 100 %; PCO2 VENOUS 39 mmHG (41-51); PH,VENOUS 7.37 (7.31-7.41); PO2 VENOUS 175 mmHG
[2017-12-31] MEDS: Acetaminophen 325 MG Tab PO PRN ×4 (08:15→21:12)
[2017-12-31] MEDS: Benzonatate 100 MG Cap PO PRN ×3 (08:15→21:05)
[2017-12-31] MEDS: Sodium Chloride 0.9% 10 ML Syringe FLUSH SCH ×2 (08:16→21:03)
[2017-12-31] MEDS: Arformoterol 15 MCG/2 ML Neb Soln NEB SCH ×2 (08:17→21:02)
[2017-12-31] MEDS: Azithromycin 500 MG in Sodium Chloride 0.9% 250 ML IV SCH (12:31)
--- NOTE | 2017-12-31 14:00 | PCM.PN ---
- General Info Date of Service: 12/31/17 Admission Dx/Problem (Free Text): Admission Diagnosis/Problem Admission Diagnosis/Problem Asthmatic bronchitis with acute exacerbation Functional Status: Reports: Other (chest pressure) - Review of Systems General: Reports: Other (still coughing) HEENT: Reports: No Symptoms Pulmonary: Reports: Shortness of Breath, Cough Cardiovascular: Reports: No Symptoms Gastrointestinal: Reports: No Symptoms Genitourinary: Reports: No Symptoms Musculoskeletal: Reports: Other (generalized aches and pains) Skin: Reports: No Symptoms Neurological: Reports: No Symptoms Psychiatric: Reports: No Symptoms - Patient Data Vitals - Most Recent: Last Vital Signs Temp 97.5 F 12/31/17 12:00 Pulse 95 12/31/17 12:00 Resp 15 12/31/17 12:00 BP 112/60 12/31/17 12:00 Pulse Ox 96 12/31/17 12:00 Weight - Most Recent: 187 lb 15.987 oz I&O - Last 24 Hours: Intake & Output 12/30/17 12/31/17 12/31/17 22:59 06:59 14:59 Intake Total 1750 500 Balance 1750 500 Lab Results Last 24 Hours: Laboratory Results - last 24 hr 12/30/17 12/31/17 12/31/17 Range/Units 16:44 06:28 06:28 WBC 13.0 H (4.0-10.2) K/uL RBC 4.36 (3.77-5.09) M/uL Hgb 11.9 (11.7-15.5) g/dL Hct 37.1 (34.0-46.0) % MCV 85.1 (84.0-98.0) fL MCH 27.3 L (28.2-33.3) pg MCHC 32.1 (31.7-36.0) g/dL RDW 13.4 (11.2-14.1) % Plt Count 233 (150-350) K/uL Neut % (Auto) 90.6 H (45.0-80.0) % Lymph % (Auto) 5.1 L (10.0-50.0) % [place] % (Auto) 4.2 (2.0-14.0) % Eos % (Auto) 0.0 (0.0-5.0) % Baso % (Auto) 0.1 (0.0-2.0) % Neut # (Auto) 11.74 H (1.40-7.00) K/uL Lymph # (Auto) 0.66 (0.50-3.50) K/uL [place] # (Auto) 0.55 (0.00-1.00) K/uL Eos # (Auto) 0.00 (0.00-0.50) K/uL Baso # (Auto) 0.01 (0.00-0.20) K/uL VBG pH (7.31-7.41) VBG pCO2 (41-51) mmHG VBG pO2 mmHG VBG HCO3 (23-28) mmol/L VBG Total CO2 mmol/L VBG O2 Saturation % VBG Base Excess ((-2)-3) mmol/L O2 Delivery Device Sodium 140 (136-145) mmol/L Potassium 4.4 (3.5-5.1) mmol/L Chloride 105 (98-107) mmol/L Carbon Dioxide 23.0 (21.0-32.0) mmol/L BUN 30 H (7-18) mg/dL Creatinine 1.08 (0.51-1.17) mg/dL Est Cr Clr Drug Dosing 51.89 mL/min Estimated GFR (MDRD) 51 mL/min Glucose 167 H (74-106) mg/dL POC Glucose 159 H (65-110) mg/dl Calcium 8.7 (8.5-10.1) mg/dL Total Bilirubin 0.4 (0.2-1.0) mg/dL AST 13 L (15-37) U/L ALT 15 (12-78) U/L Alkaline Phosphatase 66 (46-116) IU/L C-Reactive Protein < 0.1 (<=0.9) mg/dL Total Protein 6.2 L (6.4-8.2) g/dL Albumin 3.1 L (3.4-5.0) g/dL 12/31/17 12/31/17 12/31/17 Range/Units 06:28 07:27 11:35 WBC (4.0-10.2) K/uL RBC (3.77-5.09) M/uL Hgb (11.7-15.5) g/dL Hct (34.0-46.0) % MCV (84.0-98.0) fL MCH (28.2-33.3) pg MCHC (31.7-36.0) g/dL RDW (11.2-14.1) % Plt Count (150-350) K/uL Neut % (Auto) (45.0-80.0) % Lymph % (Auto) (10.0-50.0) % [place] % (Auto) (2.0-14.0) % Eos % (Auto) (0.0-5.0) % Baso % (Auto) (0.0-2.0) % Neut # (Auto) (1.40-7.00) K/uL Lymph # (Auto) (0.50-3.50) K/uL [place] # (Auto) (0.00-1.00) K/uL Eos # (Auto) (0.00-0.50) K/uL Baso # (Auto) (0.00-0.20) K/uL VBG pH 7.37 (7.31-7.41) VBG pCO2 39 L (41-51) mmHG VBG pO2 175 mmHG VBG HCO3 23 (23-28) mmol/L VBG Total CO2 24 mmol/L VBG O2 Saturation 100 % VBG Base Excess -3 L ((-2)-3) mmol/L O2 Delivery Device Room air Sodium (136-145) mmol/L Potassium (3.5-5.1) mmol/L Chloride (98-107) mmol/L Carbon Dioxide (21.0-32.0) mmol/L BUN (7-18) mg/dL Creatinine (0.51-1.17) mg/dL Est Cr Clr Drug Dosing mL/min Estimated GFR (MDRD) mL/min Glucose (74-106) mg/dL POC Glucose 152 H 128 H (65-110) mg/dl Calcium (8.5-10.1) mg/dL Total Bilirubin (0.2-1.0) mg/dL AST (15-37) U/L ALT (12-78) U/L Alkaline Phosphatase (46-116) IU/L C-Reactive Protein (<=0.9) mg/dL Total Protein (6.4-8.2) g/dL Albumin (3.4-5.0) g/dL Med Orders - Current: Current Medications Acetaminophen (Tylenol) 650 mg PO Q4H PRN PRN Reason: Pain (Mild 1-3)/fever Last Admin: 12/31/17 12:27 Dose: 650 mg Arformoterol Tartrate (Brovana) 15 mcg NEB BIDRT [facility] Last Admin: 12/31/17 08:17 Dose: 15 mcg Azithromycin (Zithromax) 500 mg PO DAILY [facility] Benzonatate (Tessalon Perles) 200 mg PO TID PRN PRN Reason: Cough Last Admin: 12/31/17 08:15 Dose: 200 mg Calcitriol (Rocaltrol) 0.25 mcg PO BEDTIME JEAN CARLOS Last Admin: 12/30/17 20:30 Dose: 0.25 mcg Clonazepam (Klonopin) 1 mg PO BEDTIME PRN PRN Reason: Insomnia Last Admin: 12/30/17 21:16 Dose: 1 mg Cyanocobalamin (Vitamin B12) 1,500 mcg PO BEDTIME [facility] Last Admin: 12/30/17 20:30 Dose: 1,500 mcg Duloxetine HCl (Cymbalta) 60 mg PO BEDTIME JEAN CARLOS Last Admin: 12/30/17 20:30 Dose: 60 mg Guaifenesin/Dextromethorphan (Mucinex Dm Er 600-30 Mg) 1 tab PO BID PRN PRN Reason: Cough Aminophylline 500 mg/ Sodium (Chloride) 120 mls @ 50 mls/hr IV ONETIME ONE Stop: 12/31/17 15:54 Aminophylline 500 mg/ Sodium (Chloride) 520 mls @ 17.68 mls/hr IV ASDIRECTED JEAN CARLOS PRN Reason: 17 MG/HR Sodium Chloride (Normal Saline) 500 mls @ 15 mls/hr IV ASDIRECTED JEAN CARLOS Lactobacillus Rhamnosus (Culturelle) 1 cap PO BEDTIME JEAN CARLOS Last Admin: 12/30/17 20:30 Dose: 1 cap Levalbuterol HCl (Xopenex) 0.63 mg NEB Q6HRRT [facility] Last Admin: 12/31/17 08:16 Dose: 0.63 mg Levalbuterol HCl (Xopenex) 0.63 mg NEB Q2H PRN PRN Reason: Cough Last Admin: 12/31/17 12:29 Dose: 0.63 mg Methylprednisolone Sodium Succinate (Solu-Medrol) 40 mg IVPUSH Q12HR [facility] Sodium Chloride (Saline Flush) 10 ml FLUSH ASDIRECTED PRN PRN Reason: Keep Vein Open Last Admin: 12/31/17 12:31 Dose: 10 ml Sodium Chloride (Saline Flush) 10 ml FLUSH Q12HR [facility] Last Admin: 12/31/17 08:16 Dose: 10 ml Timolol Maleate (Timoptic 0.5% Ophth Soln) 1 ml EYEBOTH BEDTIME [facility] Last Admin: 12/30/17 20:31 Dose: 1 drop Topiramate (Topamax) 25 mg PO BEDTIME [facility] Last Admin: 12/30/17 20:30 Dose: 25 mg Trazodone HCl (Trazodone) 50 mg PO BEDTIME PRN PRN Reason: Insomnia Last Admin: 12/30/17 21:16 Dose: 50 mg Discontinued Medications Arformoterol Tartrate (Brovana) 15 mcg NEB ONETIME ONE Stop: 12/30/17 12:01 Last Admin: 12/30/17 12:27 Dose: 15 mcg Azithromycin 500 mg/ Sodium (Chloride) 250 mls @ 250 mls/hr IV Q24H [facility] Stop: 12/31/17 12:59 Last Admin: 12/31/17 12:31 Dose: 250 mls/hr Lactated Ringer's (Ringers, Lactated) 1,000 mls @ 50 mls/hr IV ASDIRECTED [facility] Last Admin: 12/30/17 10:41 Dose: 50 mls/hr Levalbuterol HCl (Xopenex) 0.63 mg NEB Q6HRRT PRN PRN Reason: Cough Methylprednisolone Sodium Succinate (Solu-Medrol) 40 mg IVPUSH Q12H [facility] Last Admin: 12/31/17 12:27 Dose: 40 mg - Exam General: Alert, Cooperative HEENT: Pupils Equal, Pupils Reactive, Mucous Membr. Moist/[place] Neck: Trachea Midline, No JVD Lungs: Normal Respiratory Effort, Rhonchi Cardiovascular: Regular Rate, Regular Rhythm GI/Abdominal Exam: Soft, Non-Tender, No Distention (Female) Exam: Deferred Back Exam: Normal Inspection Extremities: Normal Inspection, Non-Tender, No Pedal Edema Skin: Warm, Dry, Intact Neurological: No New Focal Deficit Psy/Mental Status: Alert, Normal Affect, Normal Mood - Problem List & Annotations (1) Asthmatic bronchitis with acute exacerbation SNOMED Code(s): 208608290 Code(s): J45.901 - UNSPECIFIED ASTHMA WITH (ACUTE) EXACERBATION Status: Acute Priority: High Current Visit: Yes Qualifiers: Asthma severity: unspecified severity (2) COPD (chronic obstructive pulmonary disease) with acute bronchitis SNOMED Code(s): 459283680524442 Code(s): J44.0 - CHRONIC OBSTRUCTIVE PULMON DISEASE W ACUTE LOWER RESP INFCT ; J20.9 - ACUTE BRONCHITIS, UNSPECIFIED Status: Acute Priority: High Current Visit: Yes (3) Anemia SNOMED Code(s): 149280711 Code(s): D64.9 - ANEMIA, UNSPECIFIED Status: Acute Priority: Low Current Visit: No Qualifiers: Anemia type: iron deficiency Iron deficiency anemia type: inadequate dietary iron intake Qualified Code(s): D50.8 - Other iron deficiency anemias (4) Azotemia SNOMED Code(s): 936157658 Code(s): R79.89 - OTHER SPECIFIED ABNORMAL FINDINGS OF BLOOD CHEMISTRY Status: Acute Priority: Low Current Visit: No (5) Dehydration SNOMED Code(s): 82282180 Code(s): E86.0 - DEHYDRATION Status: Acute Current Visit: No (6) Thrombocytopenia SNOMED Code(s): 690199617 Code(s): D69.6 - THROMBOCYTOPENIA, UNSPECIFIED Status: Acute Priority: High Current Visit: No - Problem List Review Problem List Initiated/Reviewed/Updated: Yes - My Orders Last 24 Hours: My Active Orders 12/30/17 17:42 Levalbuterol HCl [Xopenex] 0.63 mg NEB Q2H PRN 12/30/17 20:00 RT Aerosol Therapy [RC] ASDIRECTED Arformoterol [Brovana] 15 mcg NEB BIDRT 12/31/17 06:28 MYCOPLASMA IGM RAPID [MREF] Routine 12/31/17 13:31 Aminophylline 500 mg Sodium Chloride 0.9% [Normal Saline] 100 ml IV ONETIME 12/31/17 16:00 Aminophylline 500 mg Sodium Chloride 0.9% [Normal Saline] 500 ml IV ASDIRECTED Sodium Chloride 0.9% [Normal Saline] 500 ml IV ASDIRECTED 12/31/17 20:00 methylPREDNISolone Sod Succ [Solu-MEDROL] 40 mg IVPUSH Q12HR 01/01/18 05:11 THEOPHYLLINE [CHEM] Routine - Plan Plan:: 12/29/2017 Patient will be admitted to inpatient for treatment of Asthmatic Bronchitis with outpatient failure. Start IV Solumedrol and Zithromax. Recheck labs in the morning. Discussed with Dr Jiang. Patient needs inpatient treatment as all other treatment options have been tried and failed. Patient continues to cough and wheeze. Carmel Baldwin CNP 12/30/2017 Patient feels some better, still with shortness of breath especially with activity. Has a pressure in her chest at times, notices when ambulating or in bed. Will check D Dimer today. Given Brovanna neb times one today, little relief. Patient noticed relief with IV solumedrol. Less coughing. Recheck labs in the morning. Consult with Dr Jiang. Continue with IV fluids, patient states not drinking as much fluids as she should be. Chest Xray and labs reviewed with the patient. Carmel Baldwin CNP 12/31/17 Apolinar Longo MD Was feeling better this AM but then had a coughing spell and felt short of breath again. Continue Brovanna and start aminophylline. Check chest ct.
[2017-12-31] MEDS ORDERED: Iopamidol 612 MG/ML 100 ML Bottle IVPUSH ONE (15:00)
[2017-12-31] MEDS: Aminophylline 500 MG in Sodium Chloride 0.9% 500 ML IV SCH (17:24)
[2017-12-31] MEDS: Sodium Chloride 0.9% 500 ML IV SCH (17:29)
[2017-12-31] MEDS: DULoxetine 30 MG Cap PO SCH (21:03)
[2017-12-31] MEDS: ClonazePAM 0.5 MG Tab PO PRN (21:03)
[2017-12-31] MEDS: Cyanocobalamin (Vitamin B12) 1,000 MCG Tab PO SCH (21:03)
[2017-12-31] MEDS: Lactobacillus Rhamnosus GG (Probiotic) Cap PO SCH (21:04)
[2017-12-31] MEDS: Timolol Maleate 0.5% Ophth Soln 5 ML Bottle EYEBOTH SCH (21:05)
[2017-12-31] MEDS: traZODone 50 MG Tab PO PRN (21:05)
[2017-12-31] MEDS: Calcitriol 0.25 MCG Cap PO SCH (21:05)
[2017-12-31] MEDS: Topiramate 25 MG Tab PO SCH (21:11)
[2018-01-01] MEDS: Levalbuterol HCl 0.63 MG/3 ML Neb NEB SCH ×4 (02:41→20:03)
[2018-01-01 07:19] LABS: CHLORIDE,CL 106 mmol/L (98-107); SODIUM,NA 141 mmol/L (136-145)
[2018-01-01] MEDS: methylPREDNISolone Sodium Succinate 40 MG/1 ML SDV IVPUSH SCH ×2 (08:27→20:01)
[2018-01-01] MEDS: Sodium Chloride 0.9% 10 ML Syringe FLUSH SCH ×2 (08:28→20:19)
[2018-01-01] MEDS: Azithromycin 250 MG Tab PO SCH (08:28)
[2018-01-01] MEDS: Arformoterol 15 MCG/2 ML Neb Soln NEB SCH ×2 (08:28→20:02)
[2018-01-01] MEDS: Benzonatate 100 MG Cap PO PRN ×2 (08:34→14:34)
[2018-01-01] MEDS: Acetaminophen 325 MG Tab PO PRN ×3 (08:34→20:03)
--- NOTE | 2018-01-01 17:36 | PCM.PN ---
- General Info Date of Service: 01/01/18 Admission Dx/Problem (Free Text): Admission Diagnosis/Problem Admission Diagnosis/Problem Asthmatic bronchitis with acute exacerbation Functional Status: Reports: Pain Controlled - Review of Systems General: Reports: Other (still episodes of cough and shortness of breath) HEENT: Reports: No Symptoms Pulmonary: Reports: Shortness of Breath, Cough Cardiovascular: Reports: Palpitations Gastrointestinal: Reports: Other (weight gain of ~30 pounds) Genitourinary: Reports: No Symptoms Musculoskeletal: Reports: Other (generalized aches and pains) Skin: Reports: Diaphoresis Neurological: Reports: Weakness Psychiatric: Reports: No Symptoms - Patient Data Vitals - Most Recent: Last Vital Signs Temp 99 F 01/01/18 16:00 Pulse 76 01/01/18 16:00 Resp 16 01/01/18 16:00 BP 103/61 01/01/18 12:00 Pulse Ox 97 01/01/18 16:00 Weight - Most Recent: 187 lb 15.987 oz I&O - Last 24 Hours: Intake & Output 01/01/18 01/01/18 01/01/18 06:59 14:59 22:59 Intake Total 384 1800 Balance 384 1800 Lab Results Last 24 Hours: Laboratory Results - last 24 hr 12/31/17 01/01/18 01/01/18 Range/Units 17:07 06:45 06:45 WBC 12.1 H (4.0-10.2) K/uL RBC 4.28 (3.77-5.09) M/uL Hgb 11.6 L (11.7-15.5) g/dL Hct 36.6 (34.0-46.0) % MCV 85.5 (84.0-98.0) fL MCH 27.1 L (28.2-33.3) pg MCHC 31.7 (31.7-36.0) g/dL RDW 13.5 (11.2-14.1) % Plt Count 211 (150-350) K/uL Neut % (Auto) 87.1 H (45.0-80.0) % Lymph % (Auto) 6.5 L (10.0-50.0) % [place] % (Auto) 6.3 (2.0-14.0) % Eos % (Auto) 0.0 (0.0-5.0) % Baso % (Auto) 0.1 (0.0-2.0) % Neut # (Auto) 10.52 H (1.40-7.00) K/uL Lymph # (Auto) 0.78 (0.50-3.50) K/uL [place] # (Auto) 0.76 (0.00-1.00) K/uL Eos # (Auto) 0.00 (0.00-0.50) K/uL Baso # (Auto) 0.01 (0.00-0.20) K/uL Sodium 141 (136-145) mmol/L Potassium 4.5 (3.5-5.1) mmol/L Chloride 106 (98-107) mmol/L Carbon Dioxide 24.8 (21.0-32.0) mmol/L BUN 27 H (7-18) mg/dL Creatinine 1.08 (0.51-1.17) mg/dL Est Cr Clr Drug Dosing 51.89 mL/min Estimated GFR (MDRD) 51 mL/min Glucose 151 H (74-106) mg/dL POC Glucose 139 H (65-110) mg/dl Calcium 8.3 L (8.5-10.1) mg/dL Total Bilirubin 0.3 (0.2-1.0) mg/dL AST 13 L (15-37) U/L ALT 15 (12-78) U/L Alkaline Phosphatase 61 (46-116) IU/L C-Reactive Protein < 0.1 (<=0.9) mg/dL Total Protein 6.1 L (6.4-8.2) g/dL Albumin 3.1 L (3.4-5.0) g/dL Theophylline 11 (10-20) ug/dL 01/01/18 01/01/18 01/01/18 Range/Units 08:26 11:25 17:26 WBC (4.0-10.2) K/uL RBC (3.77-5.09) M/uL Hgb (11.7-15.5) g/dL Hct (34.0-46.0) % MCV (84.0-98.0) fL MCH (28.2-33.3) pg MCHC (31.7-36.0) g/dL RDW (11.2-14.1) % Plt Count (150-350) K/uL Neut % (Auto) (45.0-80.0) % Lymph % (Auto) (10.0-50.0) % [place] % (Auto) (2.0-14.0) % Eos % (Auto) (0.0-5.0) % Baso % (Auto) (0.0-2.0) % Neut # (Auto) (1.40-7.00) K/uL Lymph # (Auto) (0.50-3.50) K/uL [place] # (Auto) (0.00-1.00) K/uL Eos # (Auto) (0.00-0.50) K/uL Baso # (Auto) (0.00-0.20) K/uL Sodium (136-145) mmol/L Potassium (3.5-5.1) mmol/L Chloride (98-107) mmol/L Carbon Dioxide (21.0-32.0) mmol/L BUN (7-18) mg/dL Creatinine (0.51-1.17) mg/dL Est Cr Clr Drug Dosing mL/min Estimated GFR (MDRD) mL/min Glucose (74-106) mg/dL POC Glucose 109 128 H 203 H (65-110) mg/dl Calcium (8.5-10.1) mg/dL Total Bilirubin (0.2-1.0) mg/dL AST (15-37) U/L ALT (12-78) U/L Alkaline Phosphatase (46-116) IU/L C-Reactive Protein (<=0.9) mg/dL Total Protein (6.4-8.2) g/dL Albumin (3.4-5.0) g/dL Theophylline (10-20) ug/dL Med Orders - Current: Current Medications Acetaminophen (Tylenol) 650 mg PO Q4H PRN PRN Reason: Pain (Mild 1-3)/fever Last Admin: 01/01/18 14:33 Dose: 650 mg Arformoterol Tartrate (Brovana) 15 mcg NEB BIDRT [facility] Last Admin: 01/01/18 08:28 Dose: 15 mcg Azithromycin (Zithromax) 500 mg PO DAILY [facility] Last Admin: 01/01/18 08:28 Dose: 500 mg Calcitriol (Rocaltrol) 0.25 mcg PO BEDTIME JEAN CARLOS Last Admin: 12/31/17 21:05 Dose: 0.25 mcg Clonazepam (Klonopin) 1 mg PO BEDTIME PRN PRN Reason: Insomnia Last Admin: 12/31/17 21:03 Dose: 1 mg Cyanocobalamin (Vitamin B12) 1,500 mcg PO BEDTIME JEAN CARLOS Last Admin: 12/31/17 21:03 Dose: 1,500 mcg Duloxetine HCl (Cymbalta) 60 mg PO BEDTIME JEAN CRALOS Last Admin: 12/31/17 21:03 Dose: 60 mg Aminophylline 500 mg/ Sodium (Chloride) 520 mls @ 17.68 mls/hr IV ASDIRECTED JEAN CARLOS PRN Reason: 17 MG/HR Last Admin: 12/31/17 17:24 Dose: 17 mg/hr, 17.68 mls/hr Sodium Chloride (Normal Saline) 500 mls @ 15 mls/hr IV ASDIRECTED JEAN CARLOS Last Admin: 12/31/17 17:29 Dose: 15 mls/hr Lactobacillus Rhamnosus (Culturelle) 1 cap PO BEDTIME JEAN CARLOS Last Admin: 12/31/17 21:04 Dose: 1 cap Levalbuterol HCl (Xopenex) 0.63 mg NEB Q2H PRN PRN Reason: Cough Last Admin: 12/31/17 12:29 Dose: 0.63 mg Methylprednisolone Sodium Succinate (Solu-Medrol) 40 mg IVPUSH Q12HR [facility] CARLOS Last Admin: 01/01/18 08:27 Dose: 40 mg Sodium Chloride (Saline Flush) 10 ml FLUSH ASDIRECTED PRN PRN Reason: Keep Vein Open Last Admin: 12/31/17 12:31 Dose: 10 ml Sodium Chloride (Saline Flush) 10 ml FLUSH Q12HR [facility] Last Admin: 01/01/18 08:28 Dose: 10 ml Timolol Maleate (Timoptic 0.5% Ophth Soln) 1 ml EYEBOTH BEDTIME JEAN CARLOS Last Admin: 12/31/17 21:05 Dose: 1 drop Topiramate (Topamax) 25 mg PO BEDTIME JEAN CARLOS Last Admin: 12/31/17 21:11 Dose: 25 mg Trazodone HCl (Trazodone) 50 mg PO BEDTIME PRN PRN Reason: Insomnia Last Admin: 12/31/17 21:05 Dose: 50 mg Discontinued Medications Arformoterol Tartrate (Brovana) 15 mcg NEB ONETIME ONE Stop: 12/30/17 12:01 Last Admin: 12/30/17 12:27 Dose: 15 mcg Benzonatate (Tessalon Perles) 200 mg PO TID PRN PRN Reason: Cough Last Admin: 01/01/18 14:34 Dose: 200 mg Guaifenesin/Dextromethorphan (Mucinex Dm Er 600-30 Mg) 1 tab PO BID PRN PRN Reason: Cough Azithromycin 500 mg/ Sodium (Chloride) 250 mls @ 250 mls/hr IV Q24H [facility] Stop: 12/31/17 12:59 Last Admin: 12/31/17 12:31 Dose: 250 mls/hr Lactated Ringer's (Ringers, Lactated) 1,000 mls @ 50 mls/hr IV ASDIRECTED [facility] Last Admin: 12/30/17 10:41 Dose: 50 mls/hr Aminophylline 500 mg/ Sodium (Chloride) 120 mls @ 50 mls/hr IV ONETIME ONE Stop: 12/31/17 15:54 Last Admin: 12/31/17 14:25 Dose: 50 mls/hr Iopamidol (Isovue-300 (61%)) 100 ml IVPUSH ONETIME ONE Stop: 12/31/17 15:01 Last Admin: 12/31/17 15:17 Dose: 100 ml Levalbuterol HCl (Xopenex) 0.63 mg NEB Q6HRRT [facility] Last Admin: 01/01/18 14:33 Dose: 0.63 mg Levalbuterol HCl (Xopenex) 0.63 mg NEB Q6HRRT PRN PRN Reason: Cough Methylprednisolone Sodium Succinate (Solu-Medrol) 40 mg IVPUSH Q12H [facility] Last Admin: 12/31/17 12:27 Dose: 40 mg - Exam General: Alert, Cooperative HEENT: Mucous Membr. Moist/[place] Neck: Trachea Midline, No JVD Lungs: Clear to Auscultation, Normal Respiratory Effort, Other (intermittent dry coughing spells) Cardiovascular: Regular Rate, Regular Rhythm GI/Abdominal Exam: Soft, Non-Tender, No Distention (Female) Exam: Deferred Back Exam: Normal Inspection Extremities: Normal Inspection, Non-Tender, No Pedal Edema Skin: Warm, Dry, Intact Neurological: No New Focal Deficit Psy/Mental Status: Alert, Normal Affect, Normal Mood - Problem List & Annotations (1) Asthmatic bronchitis with acute exacerbation SNOMED Code(s): 379621972 Code(s): J45.901 - UNSPECIFIED ASTHMA WITH (ACUTE) EXACERBATION Status: Acute Priority: High Current Visit: Yes Qualifiers: Asthma severity: unspecified severity (2) COPD (chronic obstructive pulmonary disease) with acute bronchitis SNOMED Code(s): 243900765344181 Code(s): J44.0 - CHRONIC OBSTRUCTIVE PULMON DISEASE W ACUTE LOWER RESP INFCT ; J20.9 - ACUTE BRONCHITIS, UNSPECIFIED Status: Acute Priority: High Current Visit: Yes (3) Anemia SNOMED Code(s): 749410438 Code(s): D64.9 - ANEMIA, UNSPECIFIED Status: Acute Priority: Low Current Visit: No Qualifiers: Anemia type: iron deficiency Iron deficiency anemia type: inadequate dietary iron intake Qualified Code(s): D50.8 - Other iron deficiency anemias (4) Azotemia SNOMED Code(s): 866006453 Code(s): R79.89 - OTHER SPECIFIED ABNORMAL FINDINGS OF BLOOD CHEMISTRY Status: Acute Priority: Low Current Visit: No (5) Dehydration SNOMED Code(s): 80022107 Code(s): E86.0 - DEHYDRATION Status: Acute Current Visit: No (6) Thrombocytopenia SNOMED Code(s): 485133989 Code(s): D69.6 - THROMBOCYTOPENIA, UNSPECIFIED Status: Acute Priority: High Current Visit: No - Problem List Review Problem List Initiated/Reviewed/Updated: Yes - My Orders Last 24 Hours: My Active Orders 12/31/17 20:00 methylPREDNISolone Sod Succ [Solu-MEDROL] 40 mg IVPUSH Q12HR 01/01/18 18:00 Dextromethorphan/guaiFENesin [Mucinex DM ER 600-30 MG] 1 tab PO BID 01/01/18 20:00 Benzonatate [Tessalon Perles] 200 mg PO TID@0800,1400,1999 Levalbuterol HCl [Xopenex] 0.63 mg NEB TID@0800,1400,2000 01/02/18 05:11 THEOPHYLLINE [CHEM] Routine - Plan Plan:: 12/29/2017 Patient will be admitted to inpatient for treatment of Asthmatic Bronchitis with outpatient failure. Start IV Solumedrol and Zithromax. Recheck labs in the morning. Discussed with Dr Jiang. Patient needs inpatient treatment as all other treatment options have been tried and failed. Patient continues to cough and wheeze. Carmel Baldwin,RUBÉN 12/30/2017 Patient feels some better, still with shortness of breath especially with activity. Has a pressure in her chest at times, notices when ambulating or in bed. Will check D Dimer today. Given Brovanna neb times one today, little relief. Patient noticed relief with IV solumedrol. Less coughing. Recheck labs in the morning. Consult with Dr Jiang. Continue with IV fluids, patient states not drinking as much fluids as she should be. Chest Xray and labs reviewed with the patient. Carmel Baldwin,RUBÉN 12/31/17 Apolinar Longo MD Was feeling better this AM but then had a coughing spell and felt short of breath again. Continue Brovanna and start aminophylline. Check chest ct. 01/01/18 Apolinar Longo MD Still with coughing spells and shortness of breath. Chest CT normal lungs. Continue zithromax, and IV aminophylline, nebulizers, IV solumedrol, schedule milka and roseann YANG.
[2018-01-01] MEDS: Dextromethorphan/guaiFENesin 600-30 MG Tab.ER PO SCH (18:30)
[2018-01-01] MEDS: Sodium Chloride 0.9% 500 ML IV SCH (18:32)
[2018-01-01] MEDS: Aminophylline 500 MG in Sodium Chloride 0.9% 500 ML IV SCH (18:38)
[2018-01-01] MEDS: ClonazePAM 0.5 MG Tab PO PRN (20:04)
[2018-01-01] MEDS: Benzonatate 100 MG Cap PO SCH (20:06)
[2018-01-01] MEDS: traZODone 50 MG Tab PO PRN (20:06)
[2018-01-01] MEDS: Calcitriol 0.25 MCG Cap PO SCH (20:07)
[2018-01-01] MEDS: Lactobacillus Rhamnosus GG (Probiotic) Cap PO SCH (20:07)
[2018-01-01] MEDS: DULoxetine 30 MG Cap PO SCH (20:07)
[2018-01-01] MEDS: Cyanocobalamin (Vitamin B12) 1,000 MCG Tab PO SCH (20:08)
[2018-01-01] MEDS: Topiramate 25 MG Tab PO SCH (20:10)
[2018-01-01] MEDS: Timolol Maleate 0.5% Ophth Soln 5 ML Bottle EYEBOTH SCH (20:11)
[2018-01-02] MEDS: Dextromethorphan/guaiFENesin 600-30 MG Tab.ER PO SCH (07:21)
[2018-01-02] MEDS: Benzonatate 100 MG Cap PO SCH (07:21)
[2018-01-02] MEDS: Acetaminophen 325 MG Tab PO PRN ×2 (07:22→11:55)
[2018-01-02] MEDS: Azithromycin 250 MG Tab PO SCH (07:22)
[2018-01-02] MEDS: Arformoterol 15 MCG/2 ML Neb Soln NEB SCH (07:24)
[2018-01-02] MEDS: Sodium Chloride 0.9% 10 ML Syringe FLUSH SCH (07:24)
[2018-01-02] MEDS: Levalbuterol HCl 0.63 MG/3 ML Neb NEB SCH (07:24)
[2018-01-02] MEDS: methylPREDNISolone Sodium Succinate 40 MG/1 ML SDV IVPUSH SCH (07:25)
[2018-01-02 08:10] LABS: CHLORIDE,CL 107 mmol/L (98-107); SODIUM,NA 139 mmol/L (136-145)
[2018-01-02 12:13] VITALS: BP 96/48
--- NOTE | 2018-01-02 12:59 | PCM.PN ---
- General Info Date of Service: 01/02/18 Admission Dx/Problem (Free Text): Admission Diagnosis/Problem Admission Diagnosis/Problem Asthmatic bronchitis with acute exacerbation Functional Status: Reports: Pain Controlled - Review of Systems General: Reports: No Symptoms HEENT: Reports: No Symptoms Pulmonary: Reports: No Symptoms Cardiovascular: Reports: No Symptoms Gastrointestinal: Reports: No Symptoms Genitourinary: Reports: No Symptoms Musculoskeletal: Reports: No Symptoms Skin: Reports: No Symptoms Neurological: Reports: No Symptoms Psychiatric: Reports: No Symptoms - Patient Data Vitals - Most Recent: Last Vital Signs Temp 99.1 F 01/02/18 12:00 Pulse 95 01/02/18 12:00 Resp 16 01/02/18 12:00 BP 96/48 L 01/02/18 12:00 Pulse Ox 98 01/02/18 12:00 Weight - Most Recent: 187 lb 15.987 oz I&O - Last 24 Hours: Intake & Output 01/01/18 01/02/18 01/02/18 22:59 06:59 14:59 Intake Total 1084 906 720 Balance 1084 906 720 Lab Results Last 24 Hours: Laboratory Results - last 24 hr 01/01/18 01/02/18 01/02/18 Range/Units 17:26 07:10 07:18 WBC (4.0-10.2) K/uL RBC (3.77-5.09) M/uL Hgb (11.7-15.5) g/dL Hct (34.0-46.0) % MCV (84.0-98.0) fL MCH (28.2-33.3) pg MCHC (31.7-36.0) g/dL RDW (11.2-14.1) % Plt Count (150-350) K/uL Neut % (Auto) (45.0-80.0) % Lymph % (Auto) (10.0-50.0) % [place] % (Auto) (2.0-14.0) % Eos % (Auto) (0.0-5.0) % Baso % (Auto) (0.0-2.0) % Neut # (Auto) (1.40-7.00) K/uL Lymph # (Auto) (0.50-3.50) K/uL [place] # (Auto) (0.00-1.00) K/uL Eos # (Auto) (0.00-0.50) K/uL Baso # (Auto) (0.00-0.20) K/uL Sodium 139 (136-145) mmol/L Potassium 4.2 (3.5-5.1) mmol/L Chloride 107 (98-107) mmol/L Carbon Dioxide 21.9 (21.0-32.0) mmol/L BUN 30 H (7-18) mg/dL Creatinine 1.04 (0.51-1.17) mg/dL Est Cr Clr Drug Dosing 53.89 mL/min Estimated GFR (MDRD) 53 mL/min Glucose 136 H (74-106) mg/dL POC Glucose 203 H 120 H (65-110) mg/dl Calcium 7.9 L (8.5-10.1) mg/dL Total Bilirubin 0.3 (0.2-1.0) mg/dL AST 14 L (15-37) U/L ALT 17 (12-78) U/L Alkaline Phosphatase 57 (46-116) IU/L C-Reactive Protein < 0.1 (<=0.9) mg/dL Total Protein 5.9 L (6.4-8.2) g/dL Albumin 2.9 L (3.4-5.0) g/dL Theophylline 10 (10-20) ug/dL 01/02/18 01/02/18 Range/Units 07:20 11:16 WBC 11.0 H (4.0-10.2) K/uL RBC 4.16 (3.77-5.09) M/uL Hgb 11.4 L (11.7-15.5) g/dL Hct 35.5 (34.0-46.0) % MCV 85.3 (84.0-98.0) fL MCH 27.4 L (28.2-33.3) pg MCHC 32.1 (31.7-36.0) g/dL RDW 13.6 (11.2-14.1) % Plt Count 218 (150-350) K/uL Neut % (Auto) 82.1 H (45.0-80.0) % Lymph % (Auto) 9.7 L (10.0-50.0) % [place] % (Auto) 8.1 (2.0-14.0) % Eos % (Auto) 0.0 (0.0-5.0) % Baso % (Auto) 0.1 (0.0-2.0) % Neut # (Auto) 9.02 H (1.40-7.00) K/uL Lymph # (Auto) 1.06 (0.50-3.50) K/uL [place] # (Auto) 0.89 (0.00-1.00) K/uL Eos # (Auto) 0.00 (0.00-0.50) K/uL Baso # (Auto) 0.01 (0.00-0.20) K/uL Sodium (136-145) mmol/L Potassium (3.5-5.1) mmol/L Chloride (98-107) mmol/L Carbon Dioxide (21.0-32.0) mmol/L BUN (7-18) mg/dL Creatinine (0.51-1.17) mg/dL Est Cr Clr Drug Dosing mL/min Estimated GFR (MDRD) mL/min Glucose (74-106) mg/dL POC Glucose 127 H (65-110) mg/dl Calcium (8.5-10.1) mg/dL Total Bilirubin (0.2-1.0) mg/dL AST (15-37) U/L ALT (12-78) U/L Alkaline Phosphatase (46-116) IU/L C-Reactive Protein (<=0.9) mg/dL Total Protein (6.4-8.2) g/dL Albumin (3.4-5.0) g/dL Theophylline (10-20) ug/dL Cresencio Results Last 24 Hours: Microbiology 12/31/17 06:28 Mycoplasma Serology - Final Blood Med Orders - Current: Current Medications Acetaminophen (Tylenol) 650 mg PO Q4H PRN PRN Reason: Pain (Mild 1-3)/fever Last Admin: 01/02/18 11:55 Dose: 650 mg Arformoterol Tartrate (Brovana) 15 mcg NEB BIDRT [facility] Last Admin: 01/02/18 07:24 Dose: 15 mcg Azithromycin (Zithromax) 500 mg PO DAILY [facility] Last Admin: 01/02/18 07:22 Dose: 500 mg Benzonatate (Tessalon Perles) 200 mg PO TID@0800,1400,1999 [facility] Last Admin: 01/02/18 07:21 Dose: 200 mg Calcitriol (Rocaltrol) 0.25 mcg PO BEDTIME [facility] Last Admin: 01/01/18 20:07 Dose: 0.25 mcg Clonazepam (Klonopin) 1 mg PO BEDTIME PRN PRN Reason: Insomnia Last Admin: 01/01/18 20:04 Dose: 1 mg Cyanocobalamin (Vitamin B12) 1,500 mcg PO BEDTIME [facility] Last Admin: 01/01/18 20:08 Dose: 1,500 mcg Duloxetine HCl (Cymbalta) 60 mg PO BEDTIME [facility] Last Admin: 01/01/18 20:07 Dose: 60 mg Guaifenesin/Dextromethorphan (Mucinex Dm Er 600-30 Mg) 1 tab PO BID [facility] Last Admin: 01/02/18 07:21 Dose: 1 tab Sodium Chloride (Normal Saline) 500 mls @ 15 mls/hr IV ASDIRECTED [facility] Last Admin: 01/01/18 18:32 Dose: 15 mls/hr Lactobacillus Rhamnosus (Culturelle) 1 cap PO BEDTIME [facility] Last Admin: 01/01/18 20:07 Dose: 1 cap Levalbuterol HCl (Xopenex) 0.63 mg NEB Q2H PRN PRN Reason: Cough Last Admin: 12/31/17 12:29 Dose: 0.63 mg Levalbuterol HCl (Xopenex) 0.63 mg NEB TID@0800,1400,1999 [facility] Last Admin: 01/02/18 07:24 Dose: 0.63 mg Methylprednisolone Sodium Succinate (Solu-Medrol) 40 mg IVPUSH Q12HR [facility] Last Admin: 01/02/18 07:25 Dose: 40 mg Sodium Chloride (Saline Flush) 10 ml FLUSH ASDIRECTED PRN PRN Reason: Keep Vein Open Last Admin: 12/31/17 12:31 Dose: 10 ml Sodium Chloride (Saline Flush) 10 ml FLUSH Q12HR [facility] Last Admin: 01/02/18 07:24 Dose: 10 ml Timolol Maleate (Timoptic 0.5% Ophth Soln) 1 ml EYEBOTH BEDTIME [facility] Last Admin: 01/01/18 20:11 Dose: 1 drop Topiramate (Topamax) 25 mg PO BEDTIME [facility] Last Admin: 01/01/18 20:10 Dose: 25 mg Trazodone HCl (Trazodone) 50 mg PO BEDTIME PRN PRN Reason: Insomnia Last Admin: 01/01/18 20:06 Dose: 50 mg Discontinued Medications Arformoterol Tartrate (Brovana) 15 mcg NEB ONETIME ONE Stop: 12/30/17 12:01 Last Admin: 12/30/17 12:27 Dose: 15 mcg Benzonatate (Tessalon Perles) 200 mg PO TID PRN PRN Reason: Cough Last Admin: 01/01/18 14:34 Dose: 200 mg Guaifenesin/Dextromethorphan (Mucinex Dm Er 600-30 Mg) 1 tab PO BID PRN PRN Reason: Cough Azithromycin 500 mg/ Sodium (Chloride) 250 mls @ 250 mls/hr IV Q24H [facility] Stop: 12/31/17 12:59 Last Admin: 12/31/17 12:31 Dose: 250 mls/hr Lactated Ringer's (Ringers, Lactated) 1,000 mls @ 50 mls/hr IV ASDIRECTED [facility] Last Admin: 12/30/17 10:41 Dose: 50 mls/hr Aminophylline 500 mg/ Sodium (Chloride) 120 mls @ 50 mls/hr IV ONETIME ONE Stop: 12/31/17 15:54 Last Admin: 12/31/17 14:25 Dose: 50 mls/hr Aminophylline 500 mg/ Sodium (Chloride) 520 mls @ 17.68 mls/hr IV ASDIRECTED [facility] PRN Reason: 17 MG/HR Last Admin: 01/01/18 18:38 Dose: 17 mg/hr, 17.68 mls/hr Iopamidol (Isovue-300 (61%)) 100 ml IVPUSH ONETIME ONE Stop: 12/31/17 15:01 Last Admin: 12/31/17 15:17 Dose: 100 ml Levalbuterol HCl (Xopenex) 0.63 mg NEB Q6HRRT [facility] Last Admin: 01/01/18 14:33 Dose: 0.63 mg Levalbuterol HCl (Xopenex) 0.63 mg NEB Q6HRRT PRN PRN Reason: Cough Methylprednisolone Sodium Succinate (Solu-Medrol) 40 mg IVPUSH Q12H [facility] Last Admin: 12/31/17 12:27 Dose: 40 mg - Exam General: Alert, Cooperative, No Acute Distress HEENT: Pupils Equal, Pupils Reactive, Mucous Membr. Moist/[place] Neck: Trachea Midline Lungs: Normal Respiratory Effort, Decreased Breath Sounds Cardiovascular: Regular Rate, Regular Rhythm GI/Abdominal Exam: Soft, Non-Tender, No Distention (Female) Exam: Deferred Back Exam: Normal Inspection Extremities: Normal Inspection, Non-Tender, No Pedal Edema Skin: Warm, Dry, Intact Neurological: No New Focal Deficit Psy/Mental Status: Alert, Normal Affect, Normal Mood - Problem List & Annotations (1) Asthmatic bronchitis with acute exacerbation SNOMED Code(s): 504273076 Code(s): J45.901 - UNSPECIFIED ASTHMA WITH (ACUTE) EXACERBATION Status: Acute Priority: High Current Visit: Yes Qualifiers: Asthma severity: unspecified severity (2) COPD (chronic obstructive pulmonary disease) with acute bronchitis SNOMED Code(s): 501829426834760 Code(s): J44.0 - CHRONIC OBSTRUCTIVE PULMON DISEASE W ACUTE LOWER RESP INFCT ; J20.9 - ACUTE BRONCHITIS, UNSPECIFIED Status: Acute Priority: High Current Visit: Yes (3) Anemia SNOMED Code(s): 631438099 Code(s): D64.9 - ANEMIA, UNSPECIFIED Status: Acute Priority: Low Current Visit: No Qualifiers: Anemia type: iron deficiency Iron deficiency anemia type: inadequate dietary iron intake Qualified Code(s): D50.8 - Other iron deficiency anemias (4) Azotemia SNOMED Code(s): 434797072 Code(s): R79.89 - OTHER SPECIFIED ABNORMAL FINDINGS OF BLOOD CHEMISTRY Status: Acute Priority: Low Current Visit: No (5) Dehydration SNOMED Code(s): 19983638 Code(s): E86.0 - DEHYDRATION Status: Acute Current Visit: No (6) Thrombocytopenia SNOMED Code(s): 023104184 Code(s): D69.6 - THROMBOCYTOPENIA, UNSPECIFIED Status: Acute Priority: High Current Visit: No - Problem List Review Problem List Initiated/Reviewed/Updated: Yes - My Orders Last 24 Hours: My Active Orders 01/01/18 18:00 Dextromethorphan/guaiFENesin [Mucinex DM ER 600-30 MG] 1 tab PO BID 01/01/18 20:00 Benzonatate [Tessalon Perles] 200 mg PO TID@0800, Levalbuterol HCl [Xopenex] 0.63 mg NEB TID@0800,01/02/18 11:54 Discontinue Telemetry Monitoring [Cardiac Monitoring Discontinue] [RC] Click to Edit Peripheral IV Discontinue [OM.PC] Routine 01/02/18 12:06 Ready for Discharge [RC] PER UNIT ROUTINE - Plan Plan:: 12/29/2017 Patient will be admitted to inpatient for treatment of Asthmatic Bronchitis with outpatient failure. Start IV Solumedrol and Zithromax. Recheck labs in the morning. Discussed with Dr Jiang. Patient needs inpatient treatment as all other treatment options have been tried and failed. Patient continues to cough and wheeze. Carmel Baldwin CNP 12/30/2017 Patient feels some better, still with shortness of breath especially with activity. Has a pressure in her chest at times, notices when ambulating or in bed. Will check D Dimer today. Given Brovanna neb times one today, little relief. Patient noticed relief with IV solumedrol. Less coughing. Recheck labs in the morning. Consult with Dr Jiang. Continue with IV fluids, patient states not drinking as much fluids as she should be. Chest Xray and labs reviewed with the patient. Carmel Baldwin,RUBÉN 12/31/17 Apolinar Longo MD Was feeling better this AM but then had a coughing spell and felt short of breath again. Continue Brovanna and start aminophylline. Check chest ct. 01/01/18 Apolinar Longo MD Still with coughing spells and shortness of breath. Chest CT normal lungs. Continue zithromax, and IV aminophylline, nebulizers, IV solumedrol, schedule tessalon and humabid DM. 01/02/18 Apolinar Longo MD Feels better. Home today.
--- NOTE | 2018-01-02 13:03 | PCM.DCSUM1 ---
Discharge Summary - Discharge Data Discharge Date: 01/02/18 Discharge Disposition: Home, Self-Care 01 Condition: Good - Discharge Diagnosis/Problem(s) (1) Asthmatic bronchitis with acute exacerbation SNOMED Code(s): 315056790 ICD Code: J45.901 - UNSPECIFIED ASTHMA WITH (ACUTE) EXACERBATION Status: Acute Priority: High Current Visit: Yes Qualifiers: Asthma severity: unspecified severity (2) COPD (chronic obstructive pulmonary disease) with acute bronchitis SNOMED Code(s): 818252880228479 ICD Code: J44.0 - CHRONIC OBSTRUCTIVE PULMON DISEASE W ACUTE LOWER RESP INFCT ; J20.9 - ACUTE BRONCHITIS, UNSPECIFIED Status: Acute Priority: High Current Visit: Yes (3) Anemia SNOMED Code(s): 549532107 ICD Code: D64.9 - ANEMIA, UNSPECIFIED Status: Acute Priority: Low Current Visit: No Qualifiers: Anemia type: iron deficiency Iron deficiency anemia type: inadequate dietary iron intake Qualified Code(s): D50.8 - Other iron deficiency anemias (4) Azotemia SNOMED Code(s): 342476211 ICD Code: R79.89 - OTHER SPECIFIED ABNORMAL FINDINGS OF BLOOD CHEMISTRY Status: Acute Priority: Low Current Visit: No (5) Dehydration SNOMED Code(s): 07617882 ICD Code: E86.0 - DEHYDRATION Status: Acute Current Visit: No (6) Thrombocytopenia SNOMED Code(s): 055995828 ICD Code: D69.6 - THROMBOCYTOPENIA, UNSPECIFIED Status: Acute Priority: High Current Visit: No - Patient Instructions Diet: Usual Diet as Tolerated Activity: As Tolerated Driving: May Drive Today Other/Special Instructions: Follow up at [facility] next week. - Discharge Plan Prescriptions/Med Rec: Azithromycin [Zithromax] 500 mg PO DAILY #5 tab Benzonatate [Tessalon Perle] 100 mg PO TID PRN #90 capsule PRN Reason: Cough Dextromethorphan/guaiFENesin [Mucinex DM ER 600-30 MG] 1 tab PO BID #30 tab.er Prednisone [IMW: predniSONE] 40 mg PO WITHBREAKFAST #10 tab Home Medications: Home Meds ClonazePAM [KlonoPIN] 1 mg PO BEDTIME PRN 02/05/15 [History] Timolol Maleate [Timoptic 0.5% Ocudose] 1 drop EYEBOTH BEDTIME 02/05/15 [History ] traZODone 50 mg PO BEDTIME PRN 02/05/15 [History] Calcitriol [Rocaltrol] 0.25 mcg PO BEDTIME 01/10/17 [History] Cyanocobalamin (Vitamin B-12) [Vitamin B-12] 1,500 mcg PO BEDTIME 01/10/17 [ History] DULoxetine [Cymbalta] 60 mg PO BEDTIME 01/10/17 [History] Ipratropium [Atrovent HFA] 2 puff INH Q4HR PRN 01/10/17 [History] Ondansetron [Zofran ODT] 4 mg PO Q6H PRN 01/28/17 [History] Acetaminophen [Tylenol Extra Strength] 1,000 mg PO TID PRN 12/29/17 [History] Albuterol/Ipratropium [DuoNeb 3.0-0.5 MG/3 ML] 3 ml INH Q4H PRN 12/29/17 [ History] Bifidobacterium Infantis [Align] 4 mg PO BEDTIME 12/29/17 [History] Budesonide [Pulmicort Flexhaler] 1 puff INH BID 12/29/17 [History] Dextrose [Glucose] 4 gm PO ASDIRECTED PRN 12/29/17 [History] Hydrocortisone/Aloe Vera [Cortizone-10 1% Creme] 1 applic TP ASDIRECTED PRN [History] Menthol [Biofreeze] 1 applic TP ASDIRECTED PRN 12/29/17 [History] Topiramate 25 mg PO BEDTIME 12/29/17 [History] ZOLMitriptan [Zomig ZMT] 2.5 mg PO ASDIRECTED PRN 12/29/17 [History] Zoledronic Acid in Water [Reclast] 5 mg IV ASDIRECTED 12/29/17 [History] Azithromycin [Zithromax] 500 mg PO DAILY #5 tab 01/02/18 [Rx] Benzonatate [Tessalon Perle] 100 mg PO TID PRN #90 capsule 01/02/18 [Rx] Dextromethorphan/guaiFENesin [Mucinex DM ER 600-30 MG] 1 tab PO BID #30 tab.er 01/02/18 [Rx] Prednisone [IMW: predniSONE] 40 mg PO WITHBREAKFAST #10 tab 01/02/18 [Rx] Patient Handouts: Arformoterol nebulizer solution, Chronic Obstructive Pulmonary Disease, [id number], Asthma, Adult, [id number], Chronic Bronchitis - Discharge Summary/Plan Comment DC Time >30 min.: No Discharge Summary/Plan Comment: 67 yowf coughing for several weeks. Outpatient therapy failed. Placed inpatient hospitalization for IV antibiotics, respiratory treatments, IV aminophyline, IV solumedrol. She slowly improved and was stable for discharge. Bordetella pertusis results still pending. She will follow up in the clinic next week. - Patient Data Vitals - Most Recent: Last Vital Signs Temp 99.1 F 01/02/18 12:00 Pulse 95 01/02/18 12:00 Resp 16 01/02/18 12:00 BP 96/48 L 01/02/18 12:00 Pulse Ox 98 01/02/18 12:00 Weight - Most Recent: 187 lb 15.987 oz I&O - Last 24 hours: Intake & Output 01/01/18 01/02/18 01/02/18 22:59 06:59 14:59 Intake Total 1084 906 720 Balance 1084 906 720 Lab Results - Last 24 hrs: Laboratory Results - last 24 hr 01/01/18 01/02/18 01/02/18 Range/Units 17:26 07:10 07:18 WBC (4.0-10.2) K/uL RBC (3.77-5.09) M/uL Hgb (11.7-15.5) g/dL Hct (34.0-46.0) % MCV (84.0-98.0) fL MCH (28.2-33.3) pg MCHC (31.7-36.0) g/dL RDW (11.2-14.1) % Plt Count (150-350) K/uL Neut % (Auto) (45.0-80.0) % Lymph % (Auto) (10.0-50.0) % [place] % (Auto) (2.0-14.0) % Eos % (Auto) (0.0-5.0) % Baso % (Auto) (0.0-2.0) % Neut # (Auto) (1.40-7.00) K/uL Lymph # (Auto) (0.50-3.50) K/uL [place] # (Auto) (0.00-1.00) K/uL Eos # (Auto) (0.00-0.50) K/uL Baso # (Auto) (0.00-0.20) K/uL Sodium 139 (136-145) mmol/L Potassium 4.2 (3.5-5.1) mmol/L Chloride 107 (98-107) mmol/L Carbon Dioxide 21.9 (21.0-32.0) mmol/L BUN 30 H (7-18) mg/dL Creatinine 1.04 (0.51-1.17) mg/dL Est Cr Clr Drug Dosing 53.89 mL/min Estimated GFR (MDRD) 53 mL/min Glucose 136 H (74-106) mg/dL POC Glucose 203 H 120 H (65-110) mg/dl Calcium 7.9 L (8.5-10.1) mg/dL Total Bilirubin 0.3 (0.2-1.0) mg/dL AST 14 L (15-37) U/L ALT 17 (12-78) U/L Alkaline Phosphatase 57 (46-116) IU/L C-Reactive Protein < 0.1 (<=0.9) mg/dL Total Protein 5.9 L (6.4-8.2) g/dL Albumin 2.9 L (3.4-5.0) g/dL Theophylline 10 (10-20) ug/dL 01/02/18 01/02/18 Range/Units 07:20 11:16 WBC 11.0 H (4.0-10.2) K/uL RBC 4.16 (3.77-5.09) M/uL Hgb 11.4 L (11.7-15.5) g/dL Hct 35.5 (34.0-46.0) % MCV 85.3 (84.0-98.0) fL MCH 27.4 L (28.2-33.3) pg MCHC 32.1 (31.7-36.0) g/dL RDW 13.6 (11.2-14.1) % Plt Count 218 (150-350) K/uL Neut % (Auto) 82.1 H (45.0-80.0) % Lymph % (Auto) 9.7 L (10.0-50.0) % [place] % (Auto) 8.1 (2.0-14.0) % Eos % (Auto) 0.0 (0.0-5.0) % Baso % (Auto) 0.1 (0.0-2.0) % Neut # (Auto) 9.02 H (1.40-7.00) K/uL Lymph # (Auto) 1.06 (0.50-3.50) K/uL [place] # (Auto) 0.89 (0.00-1.00) K/uL Eos # (Auto) 0.00 (0.00-0.50) K/uL Baso # (Auto) 0.01 (0.00-0.20) K/uL Sodium (136-145) mmol/L Potassium (3.5-5.1) mmol/L Chloride (98-107) mmol/L Carbon Dioxide (21.0-32.0) mmol/L BUN (7-18) mg/dL Creatinine (0.51-1.17) mg/dL Est Cr Clr Drug Dosing mL/min Estimated GFR (MDRD) mL/min Glucose (74-106) mg/dL POC Glucose 127 H (65-110) mg/dl Calcium (8.5-10.1) mg/dL Total Bilirubin (0.2-1.0) mg/dL AST (15-37) U/L ALT (12-78) U/L Alkaline Phosphatase (46-116) IU/L C-Reactive Protein (<=0.9) mg/dL Total Protein (6.4-8.2) g/dL Albumin (3.4-5.0) g/dL Theophylline (10-20) ug/dL BRIAN Results - Last 24 hrs: Microbiology 12/31/17 06:28 Mycoplasma Serology - Final Blood Med Orders - Current: Current Medications Acetaminophen (Tylenol) 650 mg PO Q4H PRN PRN Reason: Pain (Mild 1-3)/fever Last Admin: 01/02/18 11:55 Dose: 650 mg Arformoterol Tartrate (Brovana) 15 mcg NEB BIDRT [facility] Last Admin: 01/02/18 07:24 Dose: 15 mcg Azithromycin (Zithromax) 500 mg PO DAILY [facility] Last Admin: 01/02/18 07:22 Dose: 500 mg Benzonatate (Tessalon Perles) 200 mg PO TID@0800,1400,1999 [facility] Last Admin: 01/02/18 07:21 Dose: 200 mg Calcitriol (Rocaltrol) 0.25 mcg PO BEDTIME [facility] Last Admin: 01/01/18 20:07 Dose: 0.25 mcg Clonazepam (Klonopin) 1 mg PO BEDTIME PRN PRN Reason: Insomnia Last Admin: 01/01/18 20:04 Dose: 1 mg Cyanocobalamin (Vitamin B12) 1,500 mcg PO BEDTIME [facility] Last Admin: 01/01/18 20:08 Dose: 1,500 mcg Duloxetine HCl (Cymbalta) 60 mg PO BEDTIME [facility] Last Admin: 01/01/18 20:07 Dose: 60 mg Guaifenesin/Dextromethorphan (Mucinex Dm Er 600-30 Mg) 1 tab PO BID [facility] Last Admin: 01/02/18 07:21 Dose: 1 tab Sodium Chloride (Normal Saline) 500 mls @ 15 mls/hr IV ASDIRECTED [facility] Last Admin: 01/01/18 18:32 Dose: 15 mls/hr Lactobacillus Rhamnosus (Culturelle) 1 cap PO BEDTIME [facility] Last Admin: 01/01/18 20:07 Dose: 1 cap Levalbuterol HCl (Xopenex) 0.63 mg NEB Q2H PRN PRN Reason: Cough Last Admin: 12/31/17 12:29 Dose: 0.63 mg Levalbuterol HCl (Xopenex) 0.63 mg NEB TID@0800,1400,1999 [facility] Last Admin: 01/02/18 07:24 Dose: 0.63 mg Methylprednisolone Sodium Succinate (Solu-Medrol) 40 mg IVPUSH Q12HR [facility] Last Admin: 01/02/18 07:25 Dose: 40 mg Sodium Chloride (Saline Flush) 10 ml FLUSH ASDIRECTED PRN PRN Reason: Keep Vein Open Last Admin: 12/31/17 12:31 Dose: 10 ml Sodium Chloride (Saline Flush) 10 ml FLUSH Q12HR [facility] Last Admin: 01/02/18 07:24 Dose: 10 ml Timolol Maleate (Timoptic 0.5% Ophth Soln) 1 ml EYEBOTH BEDTIME [facility] Last Admin: 01/01/18 20:11 Dose: 1 drop Topiramate (Topamax) 25 mg PO BEDTIME [facility] Last Admin: 01/01/18 20:10 Dose: 25 mg Trazodone HCl (Trazodone) 50 mg PO BEDTIME PRN PRN Reason: Insomnia Last Admin: 01/01/18 20:06 Dose: 50 mg Discontinued Medications Arformoterol Tartrate (Brovana) 15 mcg NEB ONETIME ONE Stop: 12/30/17 12:01 Last Admin: 12/30/17 12:27 Dose: 15 mcg Benzonatate (Tessalon Perles) 200 mg PO TID PRN PRN Reason: Cough Last Admin: 01/01/18 14:34 Dose: 200 mg Guaifenesin/Dextromethorphan (Mucinex Dm Er 600-30 Mg) 1 tab PO BID PRN PRN Reason: Cough Azithromycin 500 mg/ Sodium (Chloride) 250 mls @ 250 mls/hr IV Q24H [facility] Stop: 12/31/17 12:59 Last Admin: 12/31/17 12:31 Dose: 250 mls/hr Lactated Ringer's (Ringers, Lactated) 1,000 mls @ 50 mls/hr IV ASDIRECTED [facility] Last Admin: 12/30/17 10:41 Dose: 50 mls/hr Aminophylline 500 mg/ Sodium (Chloride) 120 mls @ 50 mls/hr IV ONETIME ONE Stop: 12/31/17 15:54 Last Admin: 12/31/17 14:25 Dose: 50 mls/hr Aminophylline 500 mg/ Sodium (Chloride) 520 mls @ 17.68 mls/hr IV ASDIRECTED [facility] PRN Reason: 17 MG/HR Last Admin: 01/01/18 18:38 Dose: 17 mg/hr, 17.68 mls/hr Iopamidol (Isovue-300 (61%)) 100 ml IVPUSH ONETIME ONE Stop: 12/31/17 15:01 Last Admin: 12/31/17 15:17 Dose: 100 ml Levalbuterol HCl (Xopenex) 0.63 mg NEB Q6HRRT [facility] Last Admin: 01/01/18 14:33 Dose: 0.63 mg Levalbuterol HCl (Xopenex) 0.63 mg NEB Q6HRRT PRN PRN Reason: Cough Methylprednisolone Sodium Succinate (Solu-Medrol) 40 mg IVPUSH Q12H JEAN CARLOS Last Admin: 12/31/17 12:27 Dose: 40 mg *Q Meaningful Use (DIS) - VTE *Q VTE Criteria *Q: - Stroke *Q Stroke Criteria *Q: - AMI *Q AMI Criteria *Q:
== END 2018-01-02 13:10 | disposition home or self-care (01) | DRG 191 ==
LOC: LL.MS 11:39
PROVIDERS: ADMIT Nurse Practitioner Family; ATTEND Family Medicine
DX: J44.1 Chronic obstructive pulmonary disease with (acute) exacerbation (principal); J45.901 Unspecified asthma with (acute) exacerbation; N18.9 Chronic kidney disease, unspecified; D50.8 Other iron deficiency anemias; R79.89 Other specified abnormal findings of blood chemistry; E86.0 Dehydration; D69.6 Thrombocytopenia, unspecified; Z87.891 Personal history of nicotine dependence; Z88.8 Allergy status to other drugs, medicaments and biological substances; Z79.899 Other long term (current) drug therapy
CPT/HCPCS: 36415; 71046; 71260; 80053; 80198; 82803; 82962; 85025; 85379; 86140; 86738; 94640; A9270-GY; J0456; J2920; J7040; J7050; J7120; Q9967

== ENCOUNTER 2020-08-03 21:11 | Emergency (ER) | payer MEDICARE, BC ==
[2020-08-03 21:31] VITALS: BP 94/54; PULSE 96
--- NOTE | 2020-08-03 22:17 | EDM.PDOC ---
ED HPI GENERAL MEDICAL PROBLEM - General Chief Complaint: Lower Extremity Injury/Pain Stated Complaint: left ankle injury Time Seen by Provider: 08/03/20 21:41 Source of Information: Reports: Patient History Limitations: Reports: No Limitations - History of Present Illness INITIAL COMMENTS - FREE TEXT/NARRATIVE: Patient slipped at home. Injured left ankle. Denies other injuries. Happened approx 4-5 hours ago. No new numbness/tingling. She does have some peripheral neuropathy. Noticed increased swelling with time. Throbbing pain. Hard to bear weight. - Related Data Allergies Allergy/AdvReac Type Severity Reaction Status Date / Time fentanyl [From Duragesic] Allergy Itching Verified 08/03/20 21:12 meperidine [From Demerol] Allergy Bradycardia Verified 08/03/20 21:12 NSAIDS (Non-Steroidal Allergy Itching Verified 08/03/20 21:12 Anti-Inflamma Home Meds: Home Meds ClonazePAM [KlonoPIN] 1 mg PO BEDTIME 02/05/15 [History] timoloL maleate [Timoptic 0.5% Ocudose] 1 drop EYEBOTH BEDTIME 02/05/15 [History] traZODone 50 mg PO BEDTIME 02/05/15 [History] Calcitriol [Rocaltrol] 0.25 mcg PO BEDTIME 01/10/17 [History] Cyanocobalamin (Vitamin B-12) [Vitamin B-12] 1,500 mcg PO BEDTIME 01/10/17 [History] Ipratropium [Atrovent HFA] 2 puff INH Q4HR PRN 01/10/17 [History] Ondansetron [Zofran ODT] 4 mg PO Q4H PRN 01/28/17 [History] Bifidobacterium Infantis [Align] 4 mg PO BEDTIME 12/29/17 [History] Budesonide [Pulmicort Flexhaler] 1 puff INH BID PRN 12/29/17 [History] Dextrose [Glucose] 4 gm PO ASDIRECTED PRN 12/29/17 [History] Hydrocortisone/Aloe Vera [Cortizone-10 1% Creme] 1 applic TP ASDIRECTED PRN 12/29/17 [History] Menthol [Biofreeze] 1 applic TP ASDIRECTED PRN 12/29/17 [History] ZOLMitriptan [Zomig ZMT] 2.5 mg PO ASDIRECTED PRN 12/29/17 [History] Zoledronic Acid in Water [Reclast] 5 mg IV ASDIRECTED 12/29/17 [History] Acetaminophen 1,000 mg PO Q4HR PRN 03/10/18 [History] Albuterol [Ventolin HFA] 1 - 2 puff INH Q6HR PRN 03/10/18 [History] Fluticasone Propionate [Flonase] 2 sprays NASBOTH DAILY PRN 03/10/18 [History] polyethylene glycoL 3350 [MiraLAX] 1 packet PO DAILY PRN 03/10/18 [History] Gabapentin [Neurontin] 200 mg PO BEDTIME 03/14/19 [History] Umeclidinium Brm/Vilanterol Tr [Anoro Ellipta 62.5-25 MCG] 1 puff INH DAILY 03/14/19 [History] DULoxetine [Cymbalta] 30 mg PO DAILY 11/09/19 [History] DULoxetine [Cymbalta] 60 mg PO DAILY 11/09/19 [History] HYDROmorphone [Dilaudid] 2 mg PO Q4HR PRN 11/09/19 [History] Lidocaine/Prilocaine [EMLA Crm] 1 dose TOP ASDIRECTED PRN 11/09/19 [History] Loperamide [Imodium] 2 g PO ASDIRECTED PRN 11/09/19 [History] Omeprazole 20 mg PO DAILY 11/09/19 [History] Prochlorperazine [Compazine] 10 mg PO Q6H PRN 11/09/19 [History] Sennosides/Docusate Sodium [Senna-S] 1 tab PO BID PRN 11/09/19 [History] Amylase/Lipase/Protease [Creon DR 24,000 Unit] 0.5 cap PO TID 01/21/20 [History] Cholecalciferol (Vitamin D3) [Vitamin D3] 1,000 unit PO DAILY 01/21/20 [History] Diphenoxylate HCl/Atropine [Lomotil] 1 tab PO Q6H PRN 01/21/20 [History] GI Cocktail 15 ml PO Q6HR PRN 01/21/20 [History] Loratadine [Claritin] 10 mg PO DAILY PRN 01/21/20 [History] Past Medical History HEENT History: Reports: Impaired Vision Cardiovascular History: Reports: None Respiratory History: Reports: COPD Gastrointestinal History: Reports: Chronic Constipation Other Gastrointestinal History: CKD Genitourinary History: Reports: Chronic Renal Insuffiency TE[employer]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[employer]ER SURGERY History: Reports: Musculoskeletal History: Reports: Other (See Below) Other Musculoskeletal History: hx of fx to left foot Neurological History: Reports: Headaches, Chronic, Migraines Psychiatric History: Reports: Depression, Other (See Below) Other Psychiatric History: Insomnia Endocrine/Metabolic History: Reports: Osteoporosis, Other (See Below) Other Endocrine/Metabolic History: hypoglycemia with dumping syndrome Hematologic History: Reports: Idiopathic Thrombocytopenia Other Hematologic History: history of thrombocytopenia Immunologic History: Reports: None Oncologic (Cancer) History: Reports: Pancreatic - Infectious Disease History Infectious Disease History: Reports: Chicken Pox - Past Surgical History Other HEENT Surgeries/Procedures: parotid gland removal Other Cardiovascular Surgeries/Procedures: history of bradycardia with narcotic usages Respiratory Surgical History: Reports: None Female Surgical History: Reports: Salpingo-Oophorectomy Oncologic Surgical History: Reports: Other (See Below) Other Oncologic Surgeries/Procedures: whipple performed October 2019 Social & Family History - Family History Family Medical History: Noncontributory Cardiac: Reports: [place] Neurological: Reports: CVA Psychiatric: Reports: Depression Oncologic: Reports: Bladder, Breast, Colon, Lung, Prostate, Skin - Tobacco Use Smoking Status *Q: Former Smoker Used Tobacco, but Quit: Yes Month/Year Tobacco Last Used: 1994 - Caffeine Use Caffeine Use: Reports: Coffee, Tea - Recreational Drug Use Recreational Drug Use: No Review of Systems - Review of Systems Review Of Systems: See Below Eyes: Denies: Pain, Vision Change Ears: Denies: Dizziness Nose: Reports: No Symptoms Mouth/Throat: Reports: No Symptoms Cardiovascular: Denies: Chest Pain GI/Abdominal: Denies: Abdominal Pain Musculoskeletal: Reports: Joint Pain, Joint Swelling Skin: Reports: No Symptoms Neurological: Reports: Other (no acute changes) Psychiatric: Reports: No Symptoms ED EXAM, GENERAL - Physical Exam Exam: See Below Exam Limited By: No Limitations General Appearance: Alert, WD/WN, Mild Distress Eye Exam: Bilateral Eye: EOMI, PERRL Ears: Hearing Grossly Normal Nose: No: Nasal Deformity, Nasal Swelling, Nasal Drainage Throat/Mouth: Normal Lips, Normal Voice, No Airway Compromise Head: Atraumatic, Normocephalic Neck: Supple Respiratory/Chest: No Respiratory Distress Extremities: Other (left ankle shows swelling around lateral malleolus/tender. Can wiggle toes. Vascularly intact. Limited ROM due to pain. ) Neurological: Alert, Oriented, Normal Cognition Psychiatric: Normal Affect, Normal Mood Skin Exam: Warm, Dry, Intact, Ecchymosis (early ecchymosis). No: Pallor ED TRAUMA EXTREMITY PROCEDURES - Joint Reduction Left Ankle Progress/Comments: No need for reduction of fracture - Splinting Left Lower Extremity Splint Site: left ankle Pre-Procedure NV Status: Normal Post-Procedure NV Status: Normal Splint Material: Fiberglass Splint Design: Posterior Applied & Form Fitted By: Provider Provider Post-Splint Application NV Check: NV Status Normal, Good Position Complications: No Course - Vital Signs Last Recorded V/S: Last Vital Signs Temp 36.6 C 08/03/20 21: Pulse 96 08/03/20 21:22 Resp 14 08/03/20 21:22 BP 94/54 L 08/03/20 21:22 Pulse Ox 100 08/03/20 21:22 - Orders/Labs/Meds Orders: Active Orders 24 hr Category Date Time Status Influenza Vaccine Charge [RC] .DISCHARGE Care 08/03/20 21:43 Active Influenza Vaccine Charge [RC] .DISCHARGE Care 08/03/20 21:51 Active Ankle Min 3V Lt [CR] Stat Exams 08/03/20 21:20 Taken Meds: Medications Discontinued Medications Generic Name Dose Route Start Last Admin Trade Name Freq PRN Reason Stop Dose Admin Influenza Virus Vaccine 60 mcg 08/03/20 21:51 08/03/20 22:02 Fluad Quad Syringe IM 08/03/20 21:52 60 mcg .ONCE ONE Administration Influenza Virus Vaccine Confirm 08/03/20 21:50 08/03/20 22:07 Fluad Quad Syringe Administered 08/03/20 21:51 Not Given Dose 60 mcg IM .STK-MED ONE - Re-Assessments/Exams Free Text/Narrative Re-Assessment/Exam: 08/03/20 22:16 appears to have fracture of calcaneus. Formal Radiology reading pending. Splinted. Patient declined pain meds due to history of pruritis if she uses narcotics. Crutches given. To follow up Thursday with her clinic and if need be, with Ortho walk in clinic. Departure - Departure Time of Disposition: 22:11 Disposition: Home, Self-Care 01 Condition: Good Clinical Impression: Closed left ankle fracture Qualifiers: Encounter type: initial encounter Qualified Code(s): S82.892A - Other fracture of left lower leg, initial encounter for closed fracture - Discharge Information *PRESCRIPTION DRUG MONITORING PROGRAM REVIEWED*: Not Applicable *COPY OF PRESCRIPTION DRUG MONITORING REPORT IN PATIENT VENITA: Not Applicable Instructions: Nondisplaced Fibular Ankle Fracture Treated With Immobilization, Adult, Crutch Use, Adult, [id number] Additional Instructions: Keep foot elevated for comfort. Tylenol/ice for pain. Call your clinic right away in the morning to see if they feel comfortable treating the fracture. If they don't, [facility] has an Ortho Walk-in clinic in [place] where you can go. They will be able to see your xrays. You may wish to contact them to see if there are any special concerns that need to be addressed due to Covid. Follow up as needed if you have acute problems or concerns. Sepsis Event Note (ED) - Evaluation Sepsis Screening Result: No Definite Risk - Focused Exam Vital Signs: Vital Signs Temp Pulse Resp BP Pulse Ox 08/03/20 21:22 36.6 C 96 14 94/54 L 100 - My Orders Last 24 Hours: My Active Orders 08/03/20 21:20 Ankle Min 3V Lt [CR] Stat 08/03/20 21:43 Influenza Vaccine Charge [RC] .DISCHARGE 08/03/20 21:51 Influenza Vaccine Charge [RC] .DISCHARGE - Assessment/Plan Last 24 Hours: My Active Orders 08/03/20 21:20 Ankle Min 3V Lt [CR] Stat 08/03/20 21:43 Influenza Vaccine Charge [RC] .DISCHARGE 08/03/20 21:51 Influenza Vaccine Charge [RC] .DISCHARGE
== END 2020-08-03 22:45 | disposition home or self-care (01) ==
LOC: LL.ED 21:11
DX: S92.002A Unspecified fracture of left calcaneus, initial encounter for closed fracture (principal); G62.9 Polyneuropathy, unspecified; J44.9 Chronic obstructive pulmonary disease, unspecified; N18.9 Chronic kidney disease, unspecified; F32.9 Major depressive disorder, single episode, unspecified; G43.909 Migraine, unspecified, not intractable, without status migrainosus; Z88.4 Allergy status to anesthetic agent; Z88.8 Allergy status to other drugs, medicaments and biological substances; Z88.5 Allergy status to narcotic agent; Z87.891 Personal history of nicotine dependence; Z79.899 Other long term (current) drug therapy; W01.0XXA Fall on same level from slipping, tripping and stumbling without subsequent striking against object, initial encounter; Y92.009 Unspecified place in unspecified non-institutional (private) residence as the place of occurrence of the external cause
CPT/HCPCS: 29515; 73610; 90653; 99283; G0008; 90471

== ENCOUNTER 2021-05-31 13:30 | Emergency (ER) | payer MEDICARE, BC ==
[2021-05-31] MEDS: LORazepam 2 MG/ML SDV IVPUSH ONE ×2 (13:51→15:15)
[2021-05-31 14:20] LABS: ANION GAP 11.4 meq/L (7-15); CHLORIDE,CL 106 mmol/L (98-107); SODIUM,NA 139 mmol/L (136-145)
--- NOTE | 2021-05-31 14:46 | EDM.PDOC ---
ED HPI GENERAL MEDICAL PROBLEM - General Chief Complaint: Cardiovascular Problem Stated Complaint: anxiety, chest pressure, SOB Time Seen by Provider: 05/31/21 13:35 Source of Information: Reports: Patient History Limitations: Reports: No Limitations - History of Present Illness INITIAL COMMENTS - FREE TEXT/NARRATIVE: Patient comes to ER complaining of increased SOB/anxiety/dizziness that started yesterday. No recent signs of illness/infection. Did have her injection of Reclast several days prior. No change with her usual anxiety meds or with inhaler. Chest Pain Score (Numeric/FACES): 7 - Related Data Allergies Allergy/AdvReac Type Severity Reaction Status Date / Time fentanyl [From Duragesic] Allergy Itching Verified 08/03/20 21:12 meperidine [From Demerol] Allergy Bradycardia Verified 08/03/20 21:12 NSAIDS (Non-Steroidal Allergy Itching Verified 08/03/20 21:12 Anti-Inflamma Home Meds: Home Meds ClonazePAM [KlonoPIN] 1 mg PO BEDTIME 02/05/15 [History] timoloL maleate [Timoptic 0.5% Ocudose] 1 drop EYEBOTH BEDTIME 02/05/15 [History] traZODone 50 mg PO BEDTIME 02/05/15 [History] Calcitriol [Rocaltrol] 0.25 mcg PO BEDTIME 01/10/17 [History] Cyanocobalamin (Vitamin B-12) [Vitamin B-12] 1,500 mcg PO BEDTIME 01/10/17 [History] Ipratropium [Atrovent HFA] 2 puff INH Q4HR PRN 01/10/17 [History] Ondansetron [Zofran ODT] 4 mg PO Q4H PRN 01/28/17 [History] Bifidobacterium Infantis [Align] 4 mg PO BEDTIME 12/29/17 [History] Budesonide [Pulmicort Flexhaler] 1 puff INH BID PRN 12/29/17 [History] Dextrose [Glucose] 4 gm PO ASDIRECTED PRN 12/29/17 [History] Hydrocortisone/Aloe Vera [Cortizone-10 1% Creme] 1 applic TP ASDIRECTED PRN 12/29/17 [History] Menthol [Biofreeze] 1 applic TP ASDIRECTED PRN 12/29/17 [History] ZOLMitriptan [Zomig ZMT] 2.5 mg PO ASDIRECTED PRN 12/29/17 [History] Zoledronic Acid in Water [Reclast] 5 mg IV ASDIRECTED 12/29/17 [History] Acetaminophen 1,000 mg PO Q4HR PRN 03/10/18 [History] Albuterol [Ventolin HFA] 1 - 2 puff INH Q6HR PRN 03/10/18 [History] Fluticasone Propionate [Flonase] 2 sprays NASBOTH DAILY PRN 03/10/18 [History] polyethylene glycoL 3350 [MiraLAX] 1 packet PO DAILY PRN 03/10/18 [History] Gabapentin [Neurontin] 200 mg PO BEDTIME 03/14/19 [History] Umeclidinium Brm/Vilanterol Tr [Anoro Ellipta 62.5-25 MCG] 1 puff INH DAILY 03/14/19 [History] DULoxetine [Cymbalta] 30 mg PO DAILY 11/09/19 [History] DULoxetine [Cymbalta] 60 mg PO DAILY 11/09/19 [History] HYDROmorphone [Dilaudid] 2 mg PO Q4HR PRN 11/09/19 [History] Lidocaine/Prilocaine [EMLA Crm] 1 dose TOP ASDIRECTED PRN 11/09/19 [History] Loperamide [Imodium] 2 g PO ASDIRECTED PRN 11/09/19 [History] Omeprazole 20 mg PO DAILY 11/09/19 [History] Prochlorperazine [Compazine] 10 mg PO Q6H PRN 11/09/19 [History] Sennosides/Docusate Sodium [Senna-S] 1 tab PO BID PRN 11/09/19 [History] Amylase/Lipase/Protease [Creon DR 24,000 Unit] 0.5 cap PO TID 01/21/20 [History] Cholecalciferol (Vitamin D3) [Vitamin D3] 1,000 unit PO DAILY 01/21/20 [History] Diphenoxylate HCl/Atropine [Lomotil] 1 tab PO Q6H PRN 01/21/20 [History] GI Cocktail 15 ml PO Q6HR PRN 01/21/20 [History] Loratadine [Claritin] 10 mg PO DAILY PRN 01/21/20 [History] Romosozumab-AQQG [Evenity (2 Syringes)] 210 mg SQ WEEKLY 05/31/21 [History] Past Medical History HEENT History: Reports: Impaired Vision Cardiovascular History: Reports: None Respiratory History: Reports: COPD Gastrointestinal History: Reports: Chronic Constipation Other Gastrointestinal History: CKD Genitourinary History: Reports: Chronic Renal Insuffiency 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: Musculoskeletal History: Reports: Other (See Below) Other Musculoskeletal History: hx of fx to left foot Neurological History: Reports: Headaches, Chronic, Migraines Psychiatric History: Reports: Anxiety, Depression, Panic Attack, Other (See Below) Other Psychiatric History: Insomnia Endocrine/Metabolic History: Reports: Osteoporosis, Other (See Below) Other Endocrine/Metabolic History: hypoglycemia with dumping syndrome Hematologic History: Reports: Idiopathic Thrombocytopenia Other Hematologic History: history of thrombocytopenia Immunologic History: Reports: None Oncologic (Cancer) History: Reports: Pancreatic - Infectious Disease History Infectious Disease History: Reports: Chicken Pox - Past Surgical History HEENT Surgical History: Reports: Cataract Surgery, LASIK, Tonsillectomy, Other (See Below) Other HEENT Surgeries/Procedures: parotid gland removal Cardiovascular Surgical History: Reports: None Other Cardiovascular Surgeries/Procedures: history of bradycardia with narcotic usages Respiratory Surgical History: Reports: None GI Surgical History: Reports: Appendectomy, Bariatric Procedure, Cholecystectomy, Other (See Below) Female Surgical History: Reports: Salpingo-Oophorectomy Musculoskeletal Surgical History: Reports: Other (See Below) Other Musculoskeletal Surgeries/Procedures:: laminectomy- left and right shoulder surgery Oncologic Surgical History: Reports: Other (See Below) Other Oncologic Surgeries/Procedures: whipple performed October 2019 Social & Family History - Family History Family Medical History: No Pertinent Family History Cardiac: Reports: [place] Neurological: Reports: CVA Psychiatric: Reports: Depression Oncologic: Reports: Bladder, Breast, Colon, Lung, Prostate, Skin - Tobacco Use Tobacco Use Status *Q: Former Tobacco User Used Tobacco, but Quit: Yes Month/Year Tobacco Last Used: 1998 - Caffeine Use Caffeine Use: Reports: Coffee, Tea ED ROS GENERAL - Review of Systems Review Of Systems: See Below Constitutional: Reports: No Symptoms HEENT: Reports: No Symptoms Respiratory: Reports: Shortness of Breath Cardiovascular: Reports: Dyspnea on Exertion (chronic), Lightheadedness, Other (central chest tightness). Denies: Edema, Palpitations GI/Abdominal: Reports: No Symptoms : Reports: No Symptoms Musculoskeletal: Reports: Other (no acute changes) Skin: Reports: No Symptoms Neurological: Reports: Other (has lower leg neuropathy, more tingly today than usual) Psychiatric: Reports: Anxiety ED EXAM, GENERAL - Physical Exam Exam: See Below Exam Limited By: No Limitations General Appearance: Anxious Eye Exam: Bilateral Eye: EOMI, PERRL Ears: Hearing Grossly Normal Nose: No: Nasal Deformity, Nasal Swelling, Nasal Drainage Throat/Mouth: Normal Inspection, Normal Lips, Normal Voice, No Airway Compromise Head: Atraumatic, Normocephalic Neck: Supple, Full Range of Motion Respiratory/Chest: No Respiratory Distress, Lungs Clear, Normal Breath Sounds, No Accessory Muscle Use Cardiovascular: Regular Rate, Rhythm, No Edema, No Murmur GI/Abdominal: Soft, Non-Tender Back Exam: No: Muscle Spasm Extremities: Normal Inspection, Normal Capillary Refill Neurological: Alert, Oriented, No Motor/Sensory Deficits Psychiatric: Anxious Skin Exam: Warm, Dry, Intact, Normal Color #1 Interpretation EKG Date: 05/31/21 Time: 13:36 Rhythm: NSR Rate (Beats/Min): 66 [place]: Normal P-Wave: Present QRS: Normal ST-T: Normal QT: Normal Course - Orders/Labs/Meds Orders: Active Orders 24 hr Category Date Time Status EKG Documentation Completion [RC] ASDIRECTED Care 05/31/21 13:35 Active Chest 2V [CR] Stat Exams 05/31/21 13:34 Taken UA W/MICROSCOPIC [URIN] Stat Lab 05/31/21 13:34 Ordered Labs: Laboratory Tests 05/31/21 05/31/21 05/31/21 Range/Units 13:44 13:44 13:44 WBC 6.3 (4.0-10.2) K/uL RBC 4.47 (3.77-5.09) M/uL Hgb 13.1 D (11.7-15.5) g/dL Hct 40.9 (34.0-46.0) % MCV 91.5 D (84.0-98.0) fL MCH 29.3 (28.2-33.3) pg MCHC 32.0 (31.7-36.0) g/dL RDW 14.0 (11.2-14.1) % Plt Count 155 (150-350) K/uL Neut % (Auto) 58.1 (45.0-80.0) % Lymph % (Auto) 27.9 (10.0-50.0) % [place] % (Auto) 10.0 (2.0-14.0) % Eos % (Auto) 3.8 (0.0-5.0) % Baso % (Auto) 0.2 (0.0-2.0) % Neut # (Auto) 3.65 (1.40-7.00) K/uL Lymph # (Auto) 1.75 (0.50-3.50) K/uL [place] # (Auto) 0.63 (0.00-1.00) K/uL Eos # (Auto) 0.24 (0.00-0.50) K/uL Baso # (Auto) 0.01 (0.00-0.20) K/uL D-Dimer, Quantitative 169 (0-400) ng/mL Sodium 139 (136-145) mmol/L Potassium 4.2 (3.5-5.1) mmol/L Chloride 106 (98-107) mmol/L Carbon Dioxide 21.6 (21.0-32.0) mmol/L Anion Gap 11.4 (7-15) meq/L BUN 20 H (7-18) mg/dL Creatinine 1.42 H (0.51-1.17) mg/dL Est Cr Clr Drug Dosing TNP Estimated GFR (MDRD) 37 mL/min Glucose 95 (70-99) mg/dL Calcium 8.5 (8.5-10.1) mg/dL Magnesium 2.3 (1.8-2.4) mg/dL Total Bilirubin 0.3 (0.2-1.0) mg/dL AST 26 (15-37) U/L ALT 32 (12-78) U/L Alkaline Phosphatase 183 H (46-116) IU/L Troponin I High Sens 4 (<=51) ng/L NT-Pro-B Natriuret Pep 461 H (0-125) pg/mL Total Protein 6.7 (6.4-8.2) g/dL Albumin 3.5 (3.4-5.0) g/dL Meds: Medications Discontinued Medications Generic Name Dose Route Start Last Admin Trade Name Hermila PRN Reason Stop Dose Admin Lorazepam 1 mg 05/31/21 13:48 05/31/21 13:51 Lorazepam 2 Mg/Ml Sdv IVPUSH 05/31/21 13:49 1 mg ONETIME ONE Administration Lorazepam 1 mg 05/31/21 15:03 05/31/21 15:15 Lorazepam 2 Mg/Ml Sdv IVPUSH 05/31/21 15:04 1 mg ONETIME ONE Administration Sodium Chloride 10 ml 05/31/21 15:15 05/31/21 15:15 Sodium Chloride 0.9% 10 Ml Syringe FLUSH 05/31/21 15:16 10 ml ONETIME ONE Administration - Re-Assessments/Exams Free Text/Narrative Re-Assessment/Exam: 05/31/21 15:19 EKG/Chest xray/Trop/CBC/DDimer/Chem overall unremarkable. Minimal elevation bnp. Vital signs stable. Lungs clear/O2 sats near 100%. Noted almost complete resolution of symptoms with single dose of Ativan. Patient feels significantly improved when rechecked/results discussed with her. Minimal tightness in chest at this time. Anxiety much improved. She does have history of chronic/severe anxiety, it may be that her recent Evenity injection led to an acute exacerbation. Also has history of mild COPD. Significant reduction of air quality again the last few days due to smoke from [employer] blowing in. No wheezing or acute changes on exam that would suggest coverage with steroids. Plan at this time is to give second dose of Prednisone to patient and let her return home. She is cautioned to continue to observe for any changes/new symptoms and should get rechecked as needed. Departure - Departure Time of Disposition: 15:13 Disposition: Home, Self-Care 01 Condition: Good Clinical Impression: Anxiety Referrals: Carmel Baldwin NP [Primary Care Provider] - Forms: ED Department Discharge Additional Instructions: As we discussed we THINK this is a combination of anxiety plus the smoke issues with air quality. Be on look out for any additional changes/symptoms that might suggest otherwise and follow up as needed for additional problems/concerns. Keep trying your inhaler as needed if you are feeling SOB. See if you get similar reaction when you next receive Evenity. - My Orders Last 24 Hours: My Active Orders 05/31/21 13:34 Chest 2V [CR] Stat UA W/MICROSCOPIC [URIN] Stat 05/31/21 13:35 EKG Documentation Completion [RC] ASDIRECTED - Assessment/Plan Last 24 Hours: My Active Orders 05/31/21 13:34 Chest 2V [CR] Stat UA W/MICROSCOPIC [URIN] Stat 05/31/21 13:35 EKG Documentation Completion [RC] ASDIRECTED
[2021-05-31] MEDS: Sodium Chloride 0.9% 10 ML Syringe FLUSH ONE (15:15)
[2021-05-31 18:46] VITALS: BP 129/54; PULSE 64
== END 2021-05-31 15:55 | disposition home or self-care (01) ==
LOC: LL.ED 13:30
DX: F41.9 Anxiety disorder, unspecified (principal); J44.9 Chronic obstructive pulmonary disease, unspecified; N18.9 Chronic kidney disease, unspecified; Z87.891 Personal history of nicotine dependence; Z88.5 Allergy status to narcotic agent; Z88.8 Allergy status to other drugs, medicaments and biological substances
CPT/HCPCS: 36415; 71046; 80053; 83735; 83880; 84484; 85025; 85379; 93005; 96374; 96376; 99285; J2060

== ENCOUNTER 2023-11-28 22:51 | Emergency (ER) | payer MEDICARE ==
[2023-11-28 23:11] LABS: BASOPHILS ABSOLUTE AUTO 0.01 K/uL (0.00-0.20); BASOPHILS PERCENT AUTO 0.3 % (0.0-2.0); EOSINOPHILS ABSOLUTE AUTO 0.28 K/uL (0.00-0.50); EOSINOPHILS PERCENT AUTO 7.3 % (0.0-5.0); HEMATOCRIT 40.6 % (34.0-46.0); HEMOGLOBIN 12.9 g/dL (11.7-15.5); LYMPHOCYTES ABSOLUTE AUTO 0.59 K/uL (0.50-3.50); LYMPHOCYTES PERCENT AUTO 15.4 % (10.0-50.0); MEAN CORPUSCULAR HEMOGLOBIN 31.3 pg (28.2-33.3); MEAN CORPUSCULAR HGB CONC 31.8 g/dL (31.7-36.0); MEAN CORPUSCULAR VOLUME 98.5 fL (84.0-98.0); MONOCYTES ABSOLUTE AUTO 0.52 K/uL (0.00-1.00); MONOCYTES PERCENT AUTO 13.6 % (2.0-14.0); NEUTROPHILS ABSOLUTE AUTO 2.42 K/uL (1.40-7.00); NEUTROPHILS PERCENT AUTO 63.4 % (45.0-80.0); PLATELET COUNT,PLT 99 K/uL (150-350); RED BLOOD CELL COUNT 4.12 M/uL (3.77-5.09); RED CELL DISTRIBUTION WIDTH 12.5 % (11.2-14.1); WHITE BLOOD CELL COUNT,WBC 3.8 K/uL (4.0-10.2)
[2023-11-28] MEDS ORDERED: Sodium Chloride 0.9% 10 ML Syringe FLUSH PRN (23:17)
[2023-11-28 23:34] LABS: ALANINE AMINOTRANSFERASE,ALT 603 U/L (12-78); ALBUMIN 3.2 g/dL (3.4-5.0); ALKALINE PHOSPHATASE 249 IU/L (46-116); ANION GAP 6.4 meq/L (7-15); ASPARTATE AMNIOTRANSFERASE,AST 942 U/L (15-37); BLOOD UREA NITROGEN,BUN 21 mg/dL (7-18); CALCIUM 8.8 mg/dL (8.5-10.1); CARBON DIOXIDE,CO2 29.6 mmol/L (21.0-32.0); CHLORIDE,CL 104 mmol/L (98-107); CREATININE 1.42 mg/dL (0.51-1.17); EST CRCL DRUG DOSING (CG) 35.47 mL/min; ESTIMATED GFR 39 mL/min (>=60); GLUCOSE RANDOM 135 mg/dL (70-99); MAGNESIUM 2.1 mg/dL (1.8-2.4); POTASSIUM,K 3.6 mmol/L (3.5-5.1); PROTEIN TOTAL,TP 6.1 g/dL (6.4-8.2); SODIUM,NA 140 mmol/L (136-145)
[2023-11-28 23:38] LABS: AMYLASE 37 U/L (25-115); LIPASE 26 U/L (16-77)
[2023-11-28] MEDS: Aluminum Hydroxide/Magnesium Hydroxide/Simethicone Susp 30 ML Cup PO ONE (23:40)
[2023-11-28] MEDS: Lidocaine 2% Viscous Solution 15 ML UD PO ONE (23:40)
[2023-11-28 23:45] LABS: APPEARANCE,URINE CLEAR; BILIRUBIN,URINE MODERATE (NEGATIVE); COLOR,URINE DARK YELLOW; GLUCOSE,URINE NEGATIVE (NEGATIVE); KETONES,URINE TRACE mg/dL (NEGATIVE); LEUKOCYTE ESTERASE,URINE NEGATIVE (NEGATIVE); NITRITE,URINE NEGATIVE (NEGATIVE); OCCULT BLOOD,URINE TRACE-INTACT (NEGATIVE); PROTEIN,URINE 30 mg/dL (NEGATIVE); UROBILINOGEN,URINE >=8.0 E.U./dL (0.2-1.0)
[2023-11-28 23:52] LABS: RBC,URINE 0-5 /HPF; WBC,URINE 0-5 /HPF
[2023-11-29] MEDS: Ondansetron 4 MG/2 ML SDV IVPUSH ONE (00:01)
[2023-11-29] MEDS: Iopamidol 612 MG/ML 100 ML Bottle IVPUSH ONE (00:38)
[2023-11-29] MEDS ORDERED: Naloxone 0.4 MG/ML SDV IVPUSH PRN (01:07)
[2023-11-29] MEDS: Promethazine 25 MG/ML SDV IM ONE (01:15)
[2023-11-29] MEDS: Morphine 2 MG/ML SYRINGE IVPUSH ONE ×3 (01:15→03:27)
[2023-11-29] MEDS: Sodium Chloride 0.9% 1,000 ML IV ONE (01:18)
[2023-11-29 03:52] VITALS: BP 157/76; PULSE 89
== END 2023-11-29 03:40 ==
LOC: LL.ED 22:51
DX: K83.8 Other specified diseases of biliary tract (principal); R74.01 Elevation of levels of liver transaminase levels; J44.9 Chronic obstructive pulmonary disease, unspecified; N18.9 Chronic kidney disease, unspecified; Z79.899 Other long term (current) drug therapy; Z88.6 Allergy status to analgesic agent
CPT/HCPCS: 36415; 71045; 74177; 80053; 81001; 82150; 83605; 83690; 83735; 84484; 85025; 93005; 93010; 96361; 96372; 96374; 96375; 96376; 99284; 99285-25; A9270-GY; J2270; J2405; J2550; J7030; Q9967

== ENCOUNTER 2025-03-23 07:47 | Day surgery (SDC) | payer MEDICARE ==
[~2025-03-23 07:47] MED LIST: Midazolam 1 MG/ML 2 ML SDV ONE; Propofol 200 MG/20 ML SDV ONE
[2025-03-23] MEDS ORDERED: Sodium Chloride 0.9% 10 ML Syringe FLUSH PRN (08:00)
[2025-03-23] MEDS: Lactated Ringers 1,000 ML IV SCH (08:36)
[2025-03-23] MEDS ORDERED: Glycopyrrolate 0.2 MG/ML SDV IVPUSH ONE (09:20)
[2025-03-23] MEDS ORDERED: Ondansetron 4 MG/2 ML SDV IVPUSH ONE (09:20)
[2025-03-23 11:16] VITALS: BP 105/45; PULSE 80
== END 2025-03-23 11:08 | disposition home or self-care (01) ==
LOC: LL.SDS 07:47
PROVIDERS: ATTEND Surgery
DX: Z12.11 Encounter for screening for malignant neoplasm of colon (principal); D12.5 Benign neoplasm of sigmoid colon; D69.3 Immune thrombocytopenic purpura; K21.9 Gastro-esophageal reflux disease without esophagitis; N18.31 Chronic kidney disease, stage 3a; F41.9 Anxiety disorder, unspecified; J44.89 Other specified chronic obstructive pulmonary disease; Z79.899 Other long term (current) drug therapy
CPT/HCPCS: 00813; J1596; J2250; J2405; J2704; J7120